=== PATIENT | male | born 1960 | race Caucasian/White ===

== ENCOUNTER 2016-08-22 18:46 | Observation (INO) ==
[2016-08-22 19:30] LABS: Basophils # 0.1 K/mcL (0.0-0.2); Basophils % 0.9 %; Eosinophils # 0.1 K/mcL (0.0-0.6); Hematocrit 46.3 % (37.5-50.1); Hemoglobin 15.9 g/dL (12.9-16.9); Immature Granulocytes % 0.2 % (0-4); Lymphocytes # 2.2 K/mcL (0.6-4.6); Lymphocytes % 40.2 %; Mean Corpuscular HGB Conc 34.3 g/dL (31.6-35.5); Mean Corpuscular Hemoglobin 29.5 pg (28.0-33.3); Mean Corpuscular Volume 85.9 fL (83.0-100.0); Monocytes # 0.5 K/mcL (0.0-1.3); Monocytes % 8.3 %; Neutrophils # 2.6 K/mcL (1.6-8.9); Platelet Count 219 K/mcL (140-400); Red Blood Count 5.39 M/mcL (4.19-5.50); Red Cell Distribution Width 12.3 % (11.5-14.5); Segmented Neutrophils % 48.4 %
[2016-08-22 19:34] LABS: Prothrombin Time 11.3 Seconds (9.4-12.1)
[2016-08-22 19:37] LABS: Activated Partial Thrombo Time 29.9 Seconds (26.0-36.0)
[2016-08-22 19:43] LABS: BUN/Creatinine Ratio 14 (6-26); Blood Urea Nitrogen 13 mg/dL (8-26); Calcium 9.4 mg/dL (8.6-10.8); Carbon Dioxide 22 mEq/L (19-29); Chloride 106 mEq/L (98-109); Glucose 97 mg/dL (70-99); Osmolality,Calculated 288 (280-300); Potassium 4.2 mEq/L (3.5-4.5); Sodium 139 mEq/L (136-145); eGFR For African Americans > 60 (> 60); eGFR For Non-African Americans > 60 (> 60)
[2016-08-22] MEDS ORDERED: Aspirin 81 MG TAB.CHEW PO ONE (20:03)
--- NOTE | 2016-08-22 20:07 | Emergency Department Note ---
Disposition Clinical Impression: NSTEMI (non-ST elevated myocardial infarction) Chest pain Qualifiers: Chest pain type: unspecified Qualified Code(s): R07.9 - Chest pain, unspecified Disposition: Admitted As Inpatient Condition: Fair Time of Disposition: 20:46 Chest Pain HPI - General Chief Complaint: ED Chest Pain Stated Complaint: chest pain Time Seen by Provider: 08/22/16 19:44 Source: patient, family Limitations: no limitations Vital Signs Reviewed: Yes Nursing Notes Reviewed: Yes - History of Present Illness HPI Narrative: Mr. Montes De Oca, 56-year-old male, presents from home by daily which she complained of chest pain. Onset today at approximately 1700 hrs. Described assubtenal tightness/heaviness. Nonradiating. Associated with nausea, dyspnea. No diaphoresis or weakness. Occurred while sitting, relaxed, watching television. Duration of approximate 5 minutes before spontaneously resolving. He did not take anything to try and relieve his symptoms. He is asymptomatic at this time. He notes that this occurred one time previously approximately 1-2 weeks ago while fishing. It was severe enough that he had to sit until his symptoms passed before he can resume fishing. PMH: Hyperlipidemia, borderline diabetic. No history of CAD or ACS. Family history: Father had stent placed at approximately 60 years of age. Habits: [id number] history of smoking (10 years 1.5 pack per day); quit in 1997. ROS: Positive: Chest pain, nausea, dyspnea Negative: Moira, chills, weakness, diaphoresis, abdominal pain Severity scale (1-10): 3 - Related Data Home Medications Medication Instructions Recorded Confirmed Atorvastatin [Lipitor] 10 mg PO HS 08/22/16 08/22/16 Tamsulosin [Flomax] 0.4 mg PO DAILY 08/22/16 08/22/16 Allergies Allergy/AdvReac Type Severity Reaction Status Date / Time clarithromycin [From Biaxin] Allergy Rash Verified 08/22/16 18:57 All systems ED: reviewed and negative except as stated. Chest Pain PMH - Past Medical History Medical history: Reports: hyperlipidemia - Social History Smoking Status: Never smoker Alcohol use: Reports: occasionally Drug use: Reports: none Physical Exam Vital Signs Reviewed General: Patient is alert, oriented, and in no acute distress. HEENT: No facial asymmetry. Head is normocephalic and atraumatic. Trachea midline. Cardiovascular: Heart regular rate and rhythm without clicks, rubs, gallops, or murmurs. No JVD. PMI nondisplaced. Bilateral radial posterior tibial pulses equal and 2/4. Respiratory: Symmetric chest rise with good respiratory effort. Bilateral breath sounds are clear without wheezing, crackles, or rhonchi. Abdomen: Obese. Bowel sounds present normoactive x-4 quadrants. Abdomen is soft, nondistended, and nontender. No organomegaly noted. Psych: Patient's affect is appropriate for situation. - General Limitations: no limitations General appearance: alert, in no apparent distress Course Course Narrative: Patient's history is concerning for ACS. He is now pain-free. We will provide aspirin and chest pain workup. Chest x-ray is unremarkable. EKG does not show ST elevations. Troponin elevated at 0.05 otherwise chemistries unremarkable; no kidney dysfunction. Spoke with the patient and his at bedside. Discussed the meaning of an EKG as well as troponin looking for gross muscle injury as well as cellular injury. Discussed his slight elevation in troponin and my concerns for possible evolving cardiac damage. They agree for admission to hospital for continued evaluation. Spoke with the admitting hospitalist, Dr. Esquivel, agrees to accept the patient. He requested we began ACS dose heparin. Spoke with patient regarding risks and benefits they agree to begin heparin. Vital Signs Temperature 98.0 F 08/22/16 18:52 Pulse Rate 77 08/22/16 18:52 Respiratory Rate 16 08/22/16 18:52 Blood Pressure 155/99 08/22/16 18:52 O2 Sat by Pulse Oximetry 95 08/22/16 18:52 Temperature 98.0 F 08/22/16 18:52 Pulse Rate 76 08/22/16 20:28 Respiratory Rate 0 08/22/16 21:42 Blood Pressure 0/0 08/22/16 21:42 O2 Sat by Pulse Oximetry 96 08/22/16 20:28 Oxygen Delivery Oxygen Delivery Room Air Chest Pain - Medical Records Medical records reviewed: Yes I reviewed the patient's medical records. - Lab Data Lab results reviewed: Yes I reviewed the patient's lab results. Result diagrams: 08/22/16 19:23 08/22/16 19:23 Lab Results 08/22/16 08/22/16 08/22/16 Range/Units 19:23 19:23 19:23 WBC 5.4 (4.3-11.1) K/mcL RBC 5.39 (4.19-5.50) M/mcL Hgb 15.9 (12.9-16.9) g/dL Hct 46.3 (37.5-50.1) % MCV 85.9 (83.0-100.0) fL MCH 29.5 (28.0-33.3) pg MCHC 34.3 (31.6-35.5) g/dL RDW 12.3 (11.5-14.5) % Plt Count 219 (140-400) K/mcL MPV 10.0 (9.4-12.4) fL Immature Gran % 0.2 (0-4) % Seg Neutrophils % 48.4 % Lymphocytes % 40.2 % Monocytes % 8.3 % Eosinophils % 2.0 % Basophils % 0.9 % Neutrophils # 2.6 (1.6-8.9) K/mcL Lymphocytes # 2.2 (0.6-4.6) K/mcL Monocytes # 0.5 (0.0-1.3) K/mcL Eosinophils # 0.1 (0.0-0.6) K/mcL Basophils # 0.1 (0.0-0.2) K/mcL PT 11.3 (9.4-12.1) Seconds INR 1.0 APTT 29.9 (26.0-36.0) Seconds Sodium 139 (136-145) mEq/L Potassium 4.2 (3.5-4.5) mEq/L Chloride 106 (98-109) mEq/L Carbon Dioxide 22 (19-29) mEq/L BUN 13 (8-26) mg/dL Creatinine 0.92 (0.72-1.25) mg/dL Est GFR ( Amer) > 60 (> 60) Est GFR (Non-Af Amer) > 60 (> 60) BUN/Creatinine Ratio 14 (6-26) Glucose 97 (70-99) mg/dL Calculated Osmolality 288 (280-300) Calcium 9.4 (8.6-10.8) mg/dL Troponin I (0-0.03) ng/mL 08/22/16 Range/Units 19:23 WBC (4.3-11.1) K/mcL RBC (4.19-5.50) M/mcL Hgb (12.9-16.9) g/dL Hct (37.5-50.1) % MCV (83.0-100.0) fL MCH (28.0-33.3) pg MCHC (31.6-35.5) g/dL RDW (11.5-14.5) % Plt Count (140-400) K/mcL MPV (9.4-12.4) fL Immature Gran % (0-4) % Seg Neutrophils % % Lymphocytes % % Monocytes % % Eosinophils % % Basophils % % Neutrophils # (1.6-8.9) K/mcL Lymphocytes # (0.6-4.6) K/mcL Monocytes # (0.0-1.3) K/mcL Eosinophils # (0.0-0.6) K/mcL Basophils # (0.0-0.2) K/mcL PT (9.4-12.1) Seconds INR APTT (26.0-36.0) Seconds Sodium (136-145) mEq/L Potassium (3.5-4.5) mEq/L Chloride (98-109) mEq/L Carbon Dioxide (19-29) mEq/L BUN (8-26) mg/dL Creatinine (0.72-1.25) mg/dL Est GFR ( Amer) (> 60) Est GFR (Non-Af Amer) (> 60) BUN/Creatinine Ratio (6-26) Glucose (70-99) mg/dL Calculated Osmolality (280-300) Calcium (8.6-10.8) mg/dL Troponin I 0.05 H* (0-0.03) ng/mL - Radiology Data Radiology results reviewed: Yes I reviewed the patient's radiology results. Chest X-Ray 08/22/16 19:03 IMPRESSION: Negative single view chest. D/ / Mazin Chinchilla MD / Mazin Chinchilla MD Interpreting Provider: Mazin Chinchilla MD - EKG Data EKG attestation: Yes I reviewed and interpreted this EKG. EKG results narrative: EKG dated 08/22/16 at 19:02 interpreted as sinus rhythm with rate of 81. Normal intervals with IN 149, QRS 101, QT/QTC 351/3-9. Left axis. T-wave inversion in 3 with flattened T waves in aVF and V1. Compared to previous EKG dated 07/11 showing normal axis with same T-wave characteristics; no acute ischemic changes comparison. Heart Score - Score History: Moderately Suspicious EKG: Non Specific repolarisation Disturbance Age: 45-65 Risk Factors: 1-2 risk factors Troponin: 1-3x normal limit HEART Score Total: 5 Critical Care Time Critical Care Time: Yes Total Critical Care Time: 35 Attestation: Critical care performed: Time is exclusive of separately billable procedures. Time includes: direct patient care, patient reassessment, coordination of patient care, interpretation of data (laboratory data, radiology data, and respiratory data), review of patient's medical records, medical consultation and documentation of patient care. Procedures included in critical care time: Procedures excluded from critical care time: Attestation Statement - Attestation Attestation: I, Baljinder Hoffman MD, personally evaluated this patient and discussed their management with the resident physician. I reviewed the resident's note and agree with the documented findings, medical decision making, and plan of care. 56-year-old male presents to the emergency department with a complaint of some mid substernal chest tightness which started about one hour prior to arrival. The tightness lasted about 5-10 minutes and resolved spontaneously. He denies any chest tightness at present. He also complains of some pain in the left anterior neck off-and-on all day today. He had a similar episode of chest tightness about 2 weeks ago. The episode today was not associated with any exertion. There was some mild nausea with the episode. No diaphoresis. No shortness of breath and no palpitations. No known prior history of urinary artery disease. He does have a history of hyperlipidemia and prediabetes. Denies hypertension. On examination patient is a well-developed well-nourished well-appearing male in no acute distress. He is alert and oriented 3. There is no cyanosis or diaphoresis. Chest is nontender to palpation. Breath sounds are clear and equal bilaterally. Heart regular rate and rhythm. Abdomen soft and nontender with normal bowel sounds. No pedal edema. No acute changes on EKG. Chest x-ray negative. Labs reviewed and unremarkable other than troponin of 0.05. Patient received aspirin and was placed on heparin infusion. The hospitalist, Dr. Lan, was consulted and accepted admission of the patient.
[2016-08-22] MEDS ORDERED: *HR* Heparin 5,000 UNIT/ML VIAL IVP ONE (20:36)
[2016-08-22] MEDS ORDERED: *HR* Heparin 5,000 UNIT/ML VIAL IVP PRN ×2 (20:36)
[2016-08-22] MEDS ORDERED: Heparin 25,000 UNIT/500 ML D5W 25,000 UNIT/500 ML MLS IVC SCH (20:45)
[2016-08-22] MEDS ORDERED: Naloxone 0.4 MG/ML INJ IVP PRN (22:26)
--- NOTE | 2016-08-22 23:57 | Internal Med History&Physical ---
<Vipul Jordan - Last Filed: 08/22/16 23:53> Date of Encounter: 08/22/16 Time of Encounter: 23:53 Assessment and Plan (1) NSTEMI (non-ST elevated myocardial infarction) Current visit: Yes Status: Acute Patient presents with chest pain that is resolved at this time. EKG showed some nonspecific ST changes, no ST elevation. Initial troponin was 0.05. Patient has been started on heparin drip. Will trend troponins, check lipid panel and A1c in the morning. We will place an order for a stress test, if the patient's troponin continues to rise he may be a candidate to forego the stress test and go straight to heart cath. If patient's troponin continues to rise we will consult cardiology and evaluated for possible heart cath. Patient received aspirin in the emergency department, will continue daily aspirin and statin. (2) Hyperlipidemia Current visit: Yes Status: Acute Continue statin. Check lipid panel morning. Qualifiers: Hyperlipidemia type: unspecified Qualified Code(s): E78.5 - Hyperlipidemia , unspecified (3) DVT prophylaxis Current visit: Yes Status: Acute Patient is currently on a heparin drip for an NSTEMI. Internal Medicine - H&P: HPI Chief complaint: Chest pain Admitted From: Emergency Dept Plans for Post Hospital Care: Home History of present illness: Mr. Montes De Oca is a 56 year old male with history of hyperlipidemia who presents with chest pain. He states this pain started around 5:00 today while he was sitting watching TV. He describes this as a tightness in his chest. He states he had similar symptoms approximately 2 weeks ago while fishing. He states he sat down at that time the pain resolved after 5 minutes. Patient states that his pain lasted 15-20 minutes with this episode. Patient is chest pain-free at the time of exam. Patient states that the pain radiated into the left side of his neck. He reports associated nausea but denies vomiting, shortness of breath , diaphoresis. He reports being a former smoker quitting in 1998 and smoking 1- 1/2 packs per day for approximately 20 years prior to quitting. He reports family history with his father and grandfather receiving stents in the 60s. Denies fever, chills, cough, lower extremity swelling. Past Med Surg Social Fam HX - Past Medical History Medical history: arthritis, hyperlipidemia Psychiatric history: no psych history - Past Surgical History Surgical History: other (trigger finger) - Social History Smoking Status: Former smoker Smokeless Tobacco Status: No Alcohol use: occasionally Drug use: none - Family History Father Living Status: Cause of : [place] Hx Family Cardiac Disorders: Yes ([place] WITH STENTS) Hx Family Cancer: Yes (LUNG WITH METS) Internal Medicine - H&P: Meds Atorvastatin [Lipitor] 10 mg PO HS 08/22/16 [History] Tamsulosin [Flomax] 0.4 mg PO DAILY 08/22/16 [History] Allergies clarithromycin [From Biaxin] Allergy (Verified 08/22/16 18:57) Rash All Systems PM: A 10-system review of systems was performed and is negative for pertinent findings except as documented above in the HPI. - Constitutional Constitutional: no chills, no fever(s) - EENT Eyes: no blurry vision, no change in vision Nose, mouth and throat: no sinus pain, no sinus pressure, no sore throat - Cardiovascular Cardiovascular ROS IM: chest pain, no dyspnea, no edema, no lightheadedness, no palpitations, no syncope - Respiratory Respiratory: no cough, no dyspnea, no chest congestion, no excessive phlegm production, no change in phlegm color - Gastrointestinal Gastrointestinal: nausea, no abdominal pain, no diarrhea, no vomiting - Genitourinary Genitourinary ROS male: no dysuria, no hematuria - Musculoskeletal Musculoskeletal ROS IM: no numbness, no tingling - Integumentary Integumentary IM: no new lesions, no rash - Neurological Neurological ROS: no focal weakness, no numbness, no tingling - Psychiatric Psychiatric: no anxiety, no confusion - Endocrine Endocrine IM: no polydipsia, no polyuria - Hematologic/Lymphatic Hematologic/Lymphatic: no easy bleeding, no easy bruising - Constitutional Vitals: Temp Pulse Resp BP Pulse Ox 98.1 F 78 20 175/85 95 08/22/16 22:11 08/22/16 22:11 08/22/16 22:11 08/22/16 22:11 08/22/16 22:11 General appearance: Present: A&O X 3, pleasant, no acute distress - Head Head exam: Present: atraumatic, normal inspection, normocephalic - Eye Eye exam: Present: EOMI, PERRL - ENT ENT exam: Present: mucous membranes moist - Neck Neck exam general surgery: Present: full ROM, supple - Respiratory Respiratory exam: Present: CTAB. Absent: rales, rhonchi, wheezes - Cardiovascular Cardiovascular exam: Present: RRR. Absent: gallop, rubs, systolic murmur - GI/Abdominal GI/Abdominal exam: Present: normal bowel sounds, soft. Absent: distended, tenderness - Extremities Exam Extremities exam: Present: warm. Absent: pedal edema, tenderness - Neurological Exam Neurological exam: Present: alert, CN II-XII intact, oriented X3, no focal deficits - Psychiatric Psychiatric exam: Present: normal affect, normal mood Internal Med - H&P Results - Labs CBC & Chem 7: 08/22/16 19:23 08/22/16 19:23 <Mazin Lan - Last Filed: 08/23/16 01:28> Date of Encounter: 08/22/16 Internal Medicine - H&P: HPI History of present illness: Mr. Montes De Oca is a 56 year old male All Systems PM: A 10-system review of systems was performed and is negative for pertinent findings except as documented above in the HPI. - Constitutional Vitals: Temp Pulse Resp BP Pulse Ox 98.1 F 78 20 175/85 95 08/22/16 22:11 08/22/16 22:11 08/22/16 22:11 08/22/16 22:11 08/22/16 22:11 Internal Med - H&P Results - Labs CBC & Chem 7: 08/22/16 19:23 08/22/16 19:23 - Attending Attestation I personally interviewed and examined this patient and my medical decision- making was reviewed with the Resident Physician. I agree with the documented findings, disposition and treatment plan as described.
[2016-08-23 03:55] LABS: Hematocrit 46.5 % (37.5-50.1); Hemoglobin 15.8 g/dL (12.9-16.9); Mean Corpuscular Hemoglobin 29.5 pg (28.0-33.3); Mean Corpuscular Volume 86.9 fL (83.0-100.0); Mean Platelet Volume 10.4 fL (9.4-12.4); Platelet Count 203 K/mcL (140-400); Red Blood Count 5.35 M/mcL (4.19-5.50); Red Cell Distribution Width 12.4 % (11.5-14.5)
[2016-08-23 04:00] LABS: Hemoglobin A1C 5.8 %
[2016-08-23 04:05] LABS: BUN/Creatinine Ratio 14 (6-26); Blood Urea Nitrogen 13 mg/dL (8-26); Calcium 9.5 mg/dL (8.6-10.8); Carbon Dioxide 22 mEq/L (19-29); Chloride 108 mEq/L (98-109); Cholesterol 176 mg/dL (< 200); Glucose 116 mg/dL (70-99); HDL Cholesterol 35 mg/dL (40-59); LDL Cholesterol,Calculated 104 mg/dL (0-99); Magnesium 2.1 mg/dL (1.6-2.6); Osmolality,Calculated 291 (280-300); Phosphorous 4.4 mg/dL (2.3-4.7); Potassium 4.3 mEq/L (3.5-4.5); Sodium 140 mEq/L (136-145); Triglycerides 184 mg/dL (< 150); eGFR For African Americans > 60 (> 60); eGFR For Non-African Americans > 60 (> 60)
[2016-08-23] MEDS ORDERED: Regadenoson 0.4 MG/5 ML SYRINGE IVP ONE (06:00)
[2016-08-23] MEDS: Aspirin 81 MG TAB.CHEW PO SCH (10:27)
--- NOTE | 2016-08-23 10:30 | Nuclear Medicine Stress Report ---
Regadenoson Nuclear Stress Name: Izaiah Montes De Oca Date of Study: 08/23/2016 Date: 1960 Ht: 72.0 in Medical Record#: [id number] Age: 56 Wt: 259.0 lb Gender: Male Order #: [id number] Location: [facility] Room: [facility] Supervising Provider: Chadwick Shea CNP Reading Physician: Paulo Marie DO, FACC, FASVT Ordering Physician: Jessica Chandler CNP Primary Care Physician: None Stress Technologist: Isabel Bernal, ADDY, CPFT Supervisor Files: Hugo Willson Indications: Chest Pain Impression: Pharmacologic stress ECG is non diagnostic for ischemia due to failure to reach target heartrate. Gated EF = 56%. Medium sized, moderate to severe intensity, partially reversible inferior perfusion defect. Findings suggestive of a small prior basal inferior infarction with significant residual ischemia involving the remainder of the inferior segments. SDS 5. Jessica Chandler CNP notified via Tirendo. History: Hypercholesteremia Stress Test Summary: Stress Test Type: Pharmacologic Dobutamine Baseline Information: Initial Heart Rate: 78 Blood Pressure: 130/68 Stress Information: Test Terminated Due to (primary): As per protocol Maximum Blood Pressure: 136/64 Maximum Heart Rate: 99 Percent Maximum Heart Rate Achieved: 61 Double Product: 34521 METS Reached: 1 Symptoms: No chest symptoms Nuclear Summary: SPECT myocardial perfusion imaging using Tc99m Sestamibi given intravenously was performed at rest and following cardiac stress testing. The resting images were obtained following initial dose of 10.7 mCi. Following stress an additional dose of 35.4 mCi was given at peak exercise or 30 seconds post regadenoson infusion. Medication Given: Time Medication Dose Units Route Findings: Stress Note * Resting ECG demonstrated normal sinus rhythm. * No baseline arrhythmias were noted. * Pharmacologic stress ECG is non diagnostic for ischemia due to failure to reach target heartrate. * No chest pain or arrhythmias during stress. Hemodynamic responses * Normal hemodynamic responses to pharmacologic stress. Study Quality * Study quality is average. Gated EF % * Gated EF = 56%. Left Ventricle * The left ventricle is not dilated. * LVEDV = 106 mL. Inferior Perfusion Rest * The basal inferior segment shows a moderate reduction in perfusion. Inferior Perfusion Stress * The inferior segments show a moderate to severe reduction in perfusion. TID * No evidence of transient ischemic dilatation. TID ratio * TID ratio = 0.86. Lung Uptake * There is no evidence of increase lung uptake. Updated by Paulo Marie DO, ISIDRO, SHAZIA, LIANNE on 08/23/2016 10:23:15 AM electronically signed on 08/23/2016 10:25:52 AM with status of Final
--- NOTE | 2016-08-23 11:56 | Cardiology Consult Note ---
Date of Encounter: 08/23/16 Time of Encounter: 11:50 Assessment and Plan (1) Chest pain Current Visit: Yes Status: Acute Per Cardiology: Currently chest pain-free. Qualifiers: Chest pain type: precordial pain Qualified Code(s): R07.2 - Precordial pain (2) NSTEMI (non-ST elevated myocardial infarction) Current Visit: Yes Status: Acute Per Cardiology: Troponins elevated at 0.05, 0.06, and 0.05. Non-STEMI versus demand ischemia. Systolic blood pressures were noted to be slightly elevated at 150s to 170s during hospital stay. Currently on IV heparin drip per primary service. On aspirin, statin, beta duran. Stress test results showed the size, moderate to severe intensity, partially reversible inferior perfusion defect suggestive of small prior basal inferior infarction with significant residual ischemia involving the remainder of the inferior segments. I had a lengthy discussion with patient and family regarding further ischemic evaluation in terms of left heart catheterization. Risk factors include: hx of nicotine abuse, +FH, HLD, obesity, "pre-DM2", male. At this point they are agreeable to proceed. Discussed and reviewed with Dr. Jiang and Dr. Cristine Oro. We'll check echo. Further recommendations after catheterization and echo. All questions answered. (3) Abnormal stress test Current Visit: Yes Status: Acute Per cardiology: Abnormal nonexercise nuclear stress test. Discussion w patient/family: The assessment and plan as outlined above was discussed with the patient and/or family members who expressed understanding and agreement. All questions were answered. Thank you for involving us in the care of your patient. Please call with any questions. History of Present Illness Consult date: 08/23/16 Requesting physician: William Bro Consult reason: + Stress test Chief complaint: CP History of present illness: Mr. Montes De Oca is a 56 year old male with past medical history of hyperlipidemia, reports "prediabetic", and past nicotine abuse of smoking 1-1/2 packs per day for 20 years-- last smoked 1998. Has +FH with dad with [place]/stents in his 60s. Cardiology consult for chest pain and abnormal stress test results. Patient seen today with his and daughter at bedside. He indicates increased fatigue over the past 6 months. Reports mild increased dyspnea on exertion and this time as well. He does work at [employer] and reports job is fairly exertional. He indicates he developed midsternal chest tightness/ heaviness about one month ago fishing. At that time he sat down and symptoms did resolve on their own accord after about 5 minutes. He denied any other accompanying symptoms. He reports yesterday evening came home from work sitting down and watch television symptoms returned with similar midsternal chest tightness and squeezing pain with left neck pain and discomfort. It also lasted about 5 minutes and eventually subsided. Reports had some mild nausea as well. Past Med Surg Social Fam HX - Past Medical History Attestation: Yes The following information was validated with the patient. Source: patient, old records reviewed, obtained from family Medical history: arthritis, hyperlipidemia Psychiatric history: no psych history - Past Surgical History Surgical History: other (trigger finger) - Social History Smoking Status: Former smoker Smokeless Tobacco Status: No Alcohol use: occasionally Drug use: none - Family History Father Living Status: Cause of : [place] Hx Family Cardiac Disorders: Yes ([place] WITH STENTS) Hx Family Cancer: Yes (LUNG WITH METS) Medications and Allergies Atorvastatin [Lipitor] 10 mg PO HS 08/22/16 [History] Tamsulosin [Flomax] 0.4 mg PO DAILY 08/22/16 [History] Allergies clarithromycin [From Biaxin] Allergy (Verified 08/22/16 18:57) Rash All Systems Review: A 10-system review of systems was performed and is negative for pertinent findings except as documented above in the HPI. - Constitutional Constitutional: fatigue - Cardiovascular Cardiovascular: as per HPI, chest pain at rest, dyspnea on exertion Physical Examination Selected Entries 08/23/16 10:30 08/23/16 12:50 Temperature 98.1 F Pulse Rate 103 Respiratory Rate 18 Blood Pressure 146/80 O2 Sat by Pulse Oximetry 95 Oxygen Delivery Method Room Air General: Conversant, No Apparent Distress HEENT: Atraumatic, Normocephaly, Mucus Membranes Moist Neck: No JVD, Normal carotid pulses Cardiac: Reg Rate and Rhythm, Normal S1 and S2, No Murmur Lungs: Normal Breath Sounds, No Wheeze, Rales, Rhonchi Neuro: Alert and responsive, No focal deficits noted Abdomen: Soft, Non-Tender Skin: No rashes noted on visualized skin Musculoskeletal: No Chest Wall Tenderness Extremities: No Clubbing, No Cyanosis, No Edema, Normal Pulses Results 08/23/16 03:30 08/23/16 03:30 Lab Results Laboratory Tests 08/22/16 08/22/16 08/23/16 19:23 19:23 03:30 INR 1.0 Creatinine Est GFR (Non-Af Amer) Hemoglobin A1c Troponin I 0.05 H* 0.06 H* LDL Cholesterol, Calc 08/23/16 08/23/16 08/23/16 03:30 03:30 11:39 INR Creatinine 0.92 Est GFR (Non-Af Amer) > 60 Hemoglobin A1c 5.8 H Troponin I 0.05 H* LDL Cholesterol, Calc 104 H ITS Impressions Chest X-Ray 08/22/16 19:03 IMPRESSION: Negative single view chest. D/ / Mazin Chinchilla MD / Mazin Chinchilla MD Interpreting Provider: Mazin Chinchilla MD Active Medications Aspirin (Aspirin) 81 mg PO DAILY KIERAN Stop: 02/22/17 09:01 Last Admin: 08/23/16 10:27 Dose: 81 mg Atorvastatin Calcium (Lipitor) 80 mg PO HS KIERAN Stop: 02/22/17 21:01 Carvedilol (Coreg) 3.125 mg PO BIDWM KIERAN PRN Reason: Protocol Stop: 02/22/17 17:01 Naloxone HCl (Narcan) 0.4 mg IVP Q2MIN PRN PRN Reason: Opioid Reversal Stop: 02/21/17 22:27 Nitroglycerin (Nitroglycerin) 0.4 mg SL Q5MIN PRN PRN Reason: Chest Pain Stop: 02/22/17 12:22 Tamsulosin HCl (Flomax) 0.4 mg PO HS KIERAN PRN Reason: Protocol Stop: 02/21/17 21:01 Last Admin: 08/22/16 22:36 Dose: Not Given - Imaging and Cardiology Chest Xray: report reviewed Stress Test: report reviewed - EKG Interpretation EKG results cardiology: personally reviewed, normal ECG, sinus rhythm, no diagnostic ischemia Consult Discharge Plan - Plan Referrals: Izaiah Marrufo MD [Primary Care Provider] -
--- NOTE | 2016-08-23 12:18 | Internal Med Progress Note ---
Date of Encounter: 08/23/16 Time of Encounter: 11:15 - Assessment and plan (1) Abnormal stress test Current Visit: Yes Status: Acute Assessment and plan: Patient underwent nuclear stress test which showed inferior ischemia. Has good ejection fraction. Cardiology has been consulted. Troponin stable at 0.05. Still having intermittent chest pain. Patient will likely need left heart catheterization. High risk for complications (2) Chest pain Current Visit: Yes Status: Acute Assessment and plan: Likely angina related to his pain. Abnormal stress test. Await cardiology input. Qualifiers: Chest pain type: precordial pain Qualified Code(s): R07.2 - Precordial pain (3) Hyperlipidemia Current Visit: Yes Status: Chronic Assessment and plan: Continue Lipitor Qualifiers: Hyperlipidemia type: mixed hyperlipidemia Qualified Code(s): E78.2 - Mixed hyperlipidemia (4) Essential hypertension Current Visit: Yes Status: Chronic Assessment and plan: Blood pressure elevated today. Not on any medications at home. We will start on low-dose beta duran - Subjective Interval history: Patient feeling better today. Having occasional intermittent chest pain. No shortness of breath. Underwent cardiac stress test earlier today. Tolerated procedure well. - Constitutional Vitals: Temp Pulse Resp BP Pulse Ox 98.1 F 69 20 165/88 95 08/23/16 07:07 08/23/16 07:07 08/23/16 07:07 08/23/16 07:07 08/23/16 07:07 General appearance: Present: A&O X 3, pleasant, no acute distress - Respiratory Respiratory exam: Present: CTAB. Absent: accessory muscle use, rales, rhonchi, wheezes - Cardiovascular Cardiovascular exam: Present: RRR, +S1, +S2. Absent: diastolic murmur, gallop, rubs, systolic murmur - GI/Abdominal GI/Abdominal exam: Present: normal bowel sounds, soft, no peritoneal signs. Absent: distended, tenderness - Neurological Exam Neurological exam: Present: alert, oriented X3, no focal deficits. Absent: facial droop, speech deficit Internal Medicine: Result - Labs CBC & Chem 7: 08/23/16 03:30 08/23/16 03:30 Labs: Short CBC 08/23/16 Range/Units 03:30 WBC 4.6 (4.3-11.1) K/mcL Hgb 15.8 (12.9-16.9) g/dL Hct 46.5 (37.5-50.1) % Plt Count 203 (140-400) K/mcL BMP 08/23/16 03:30 Sodium 140 Potassium 4.3 Chloride 108 Carbon Dioxide 22 BUN 13 Creatinine 0.92 Glucose 116 H Calcium 9.5 Cardiac Enzymes 08/23/16 08/23/16 Range/Units 03:30 11:39 Troponin I 0.06 H* 0.05 H* (0-0.03) ng/mL - ABG Interpretation ABG results: PT/INR, D-dimer PT 11.3 Seconds (9.4-12.1) 08/22/16 19:23 Consult Discharge Plan - Plan Referrals: Izaiah Marrufo MD [Primary Care Provider] - - Attending Attestation This document has been at least partially created by [employer] recognition technology by Dr. Bro. Errors in grammar, wording or other phrases may exist. If errors are found after the documentation is signed, they will be addressed individually in the addendum section of this document when appropriate.
[2016-08-23] MEDS ORDERED: Nitroglycerin 0.4 MG TAB.SUBL SL PRN (12:21)
[2016-08-23] MEDS ORDERED: Nitroglycerin 1,000 MCG/10 ML VIAL IV ONE (13:17)
[2016-08-23] MEDS ORDERED: *HR* Heparin 10,000 UNIT/10 ML VIAL ONE (13:17)
[2016-08-23] MEDS ORDERED: 0.9 % Sodium Chloride 1,000 ML ONE ×2 (13:17→13:54)
[2016-08-23] MEDS ORDERED: Heparin 1,000 UNITS/500 mL NS 500 ML ONE (13:17)
[2016-08-23] MEDS ORDERED: *HR* Midazolam HCl 2 MG/2 ML VIAL ONE (13:58)
[2016-08-23] MEDS ORDERED: *HR* FentaNYL (PF) 100 MCG/2 ML VIAL ONE (13:59)
--- NOTE | 2016-08-23 14:18 | Pre-Sedation Evaluation ---
Pre-sedation evaluation - Pre-sedation checklist Date of procedure: 08/23/16 Procedure: [facility] Recent Vitals: Last Vital Signs Temp 98.1 F 08/23/16 12:50 Pulse 103 08/23/16 12:50 Resp 18 08/23/16 12:50 BP 146/80 08/23/16 12:50 Pulse Ox 95 08/23/16 12:50 H&P (including ROS) documented in medical record: Yes Previous reaction to sedatives/anesthetics: No Dietary Status: No solid food in preceding 4 hrs and no liquid in preceding 2 hrs Airway Assessment: Patient can open mouth completely, TMJ function normal, Micrognathia (under-bite, receding chin) absent, Neck with adequate range of motion Dentition: full dentition Possible difficult airway: No ASA Classification *see protocol: CLASS II-Mild systemic disease Plan of Care: Pt appropriate candidate for procedure/moderate/conscious sedation , Risks/benefits of procedure/sedation discussed w/ patient/family
[2016-08-23] MEDS ORDERED: *HR* Ticagrelor 90 MG TABLET ONE (14:54)
[2016-08-23] MEDS ORDERED: 0.9 % Sodium Chloride 1,000 ML IVC SCH (15:30)
--- NOTE | 2016-08-23 15:42 | Invasive Diagnostic Lab ---
Name: Izaiah Montes De Oca Date of Study: 08/23/2016 Date: 1960 Ht: 183.0 cm /72.0 in Medical Record#: [id number] Age: 56 Wt: 118. kg / 260.15 lb Account/Order#: [id number] Gender: Male BSA: 2.38 Order #: [id number] Fluoro Dose: 978 mGy BMI: 35.24 Procedure Physician: Robyn Oro MD, [facility] Referring MD: Referring MD: Procedures Performed: LEFT HEART CATH Stent w/ PTCA Single Major Vessel Indications: Abnormal Test - Stress, Non-Stemi Impressions: There is severe one vessel coronary artery disease. The left ventricle is normal and has normal contractility EF 55% Patient had successful PTCA/Drug-Eluting Stent placement in the distal RCA. Recommendations: Plavix (Clopidogrel) 75 mg PO Daily. Optimal medical therapy of patient's disease. Aggressive risk factor modification. Patient being referred for cardiac rehab. History/Risk Factors: arthritis former smoker Hypertension Dyslipidemia Family History of CAD Procedure Access obtained in the right Femoral artery by percutaneous puncture Patient had successful PTCA/Drug-Eluting Stent placement in the distal RCA. Complications: None Contrast: Isovue 115ml Closure Device: Manual Compression Hemodynamics: Pressures Site Systolic/ A Wave Diastolic/ V Wave End Diastolic/ Mean HR AO 116 89 102 71 AO 135 107 121 74 LV 109 36 11 86 LV 109 10 10 73 LV 118 2 48 71 AO 105 80 94 76 AO 114 77 94 74 AO 121 89 106 71 LV Ventriculography Ejection Method: LV Gram Ejection Fraction: 55% Wall Motion: LONG Anterobasal Normal Anterolateral Normal Apical: Normal Inferoapical Mild Hypokinesis Inferobasal Mild Hypokinesis Coronary Dominance: right Lesion Findings/Interventions * Left Main Coronary Artery There is a 25% stenosis in the LMCA. * Left Anterior Descending There is a 30% stenosis in the Proximal LAD. There is a 30% stenosis in the Mid LAD. There is a 40% stenosis in the 1st Diagonal. * Circumflex There is a 30% stenosis in the Proximal Circumflex. There is a 30% stenosis in the Mid Circumflex. There is a 40% stenosis in the Distal Circumflex. * Right Coronary Artery There is a 30% stenosis in the Proximal RCA. There is a 30% stenosis in the Mid RCA. There is a 16 mm long, 99% stenosis in the Distal RCA. The lesion has a ANDRAE flow of 2 and has no thrombus present. An intervention was performed on the Distal RCA with a final stenosis of 0%. There were no lesion complications. The final ANDRAE flow was 3. AV segment fills via L to R collaterals. Interventional Device(s) Vessel Segment Type Name Diameter (mm) Length (mm) Distal RCA Balloon Emerge Monorail 2 12 Distal RCA Drug Eluting Stent Synergy 2.5 16 Updated by Robyn Oro MD, FACC on 08/23/2016 3:36:22 PM Robyn Oro MD, FACC electronically signed on 08/23/2016 3:37:49 PM with status of Final
--- NOTE | 2016-08-23 16:37 | Electrocardiograph Report ---
[address] [address] Test Date: 2016-08-22 Pat Name: Izaiah Montes De Oca Department: 103 Room: [facility] Gender: M Security Trainer: [facility] : 1960 Requested By: Que Ta Order Number: [id number] Reading MD: Robyn Oro Measurements Intervals [place] Rate: 81 P: 28 GA: 149 QRS: -25 QRSD: 101 T: 7 QT: 351 QTc: 389 Interpretive Statements SINUS RHYTHM BORDERLINE LEFT AXIS DEVIATION LOW QRS VOLTAGE IN PRECORDIAL LEADS INCOMPLETE RIGHT BUNDLE BRANCH BLOCK Electronically Signed On 08-23-2016 16:36:02 EDT by Robyn Oro
--- NOTE | 2016-08-23 17:57 | Invasive Diagnostic Lab Proc ---
Name: Izaiah Montes De Oca Date of Study: 08/23/2016 Date: 1960 Ht: 72.0in Medical Record#: [id number] Age: 56 Wt: 260.15lb Gender: Male BSA: 2.38 Order #: [id number] BMI: 35.24 Physicians Procedure Physician: Robyn Oro MD, FACC Referring MD: Referring MD: Staff Name Position Time In Elidia Hughes RN Monitor 02:14 PM Maira Coronado RN Tourist Home Keeper 02:14 PM Estrellita Donald RT (R) Scrub 02:14 PM Indications Indication Abnormal Test - Stress Non-Stemi Procedures Performed Procedure L HRT ARTERY/VENTRICLE ANGIO PRQ CARD YAMILA STENT W/ANGIO 1 VSL Pre-Procedure Checklist Informed consent is complete signed and on chart. H\\T\\P is on chart. ID band is on and ID verified with patient. Patient NPO for procedure The procedure was described for the patient and questions were answered. Blood Pressure: 146/80 ECG is on chart. Plan of Care Patient will tolerate the procedure without complications. Adequate level of comfort will be maintained. Hemodynamics will remain stable Patient will recover from procedure without complications. Respiratory function will be maintained. Cardiac rhythm will remain stable. Patient temperature will be maintained. Patient and/or family have verbalized understanding of the procedure. Patient Education Chief Complaint/Reason for Test: Cardiac Cath Developmental Category: Adult (18-64 years) Developmentally Appropriate for Age: Yes Learning Barriers: None Education Needs: Procedure Education Method: Verbal Information Taught: Cardiac Cath Educational Evaluation: Able to repeat information Intravenous Access Time IV Size Location DC'd Fluid/Drip Rate Units RN 01:19 PM 20g 1 1/4" Patent On Arrival Lt Antecubital 0.9NaCl 50 ml/hr Maira Coronado RN Allergies clarithromycin Vital Signs Time BP (mmHg) HR (bpm) O2 Sat. RR (bpm) LOC 01:20 PM 146 / 80 103 95 % 18 5 = Fully awake and oriented or at pre-proc level 02:20 PM / % 5 = Fully awake and oriented or at pre-proc level 02:20 PM / % 4 = Oriented but drowsy 02:46 PM 140 / 97 70 94 % 15 02:51 PM 142 / 94 69 95 % 14 02:16 PM 167 / 96 % 02:21 PM 162 / 105 77 94 % 27 02:26 PM 139 / 96 74 92 % 5 02:31 PM 147 / 97 93 97 % 5 02:36 PM 147 / 100 71 96 % 12 02:41 PM 141 / 90 75 95 % 15 03:12 PM 134 / 88 73 94 % 16 4 = Oriented but drowsy 03:35 PM 130 / 97 68 95 % 16 5 = Fully awake and oriented or at pre-proc level 03:45 PM 129 / 96 71 94 % 16 5 = Fully awake and oriented or at pre-proc level 04:00 PM 136 / 93 70 94 % 16 5 = Fully awake and oriented or at pre-proc level 04:15 PM 128 / 91 71 96 % 18 4 = Oriented but drowsy 04:33 PM 134 / 89 60 95 % 16 4 = Oriented but drowsy 04:45 PM 109 / 72 60 96 % 18 5 = Fully awake and oriented or at pre-proc level 05:00 PM 132 / 92 71 95 % 18 5 = Fully awake and oriented or at pre-proc level 05:15 PM 129 / 89 58 95 % 18 5 = Fully awake and oriented or at pre-proc level 05:30 PM 142 / 95 69 95 % 18 5 = Fully awake and oriented or at pre-proc level 05:40 PM 142 / 90 67 95 % 18 5 = Fully awake and oriented or at pre-proc level 05:50 PM 142 / 96 69 95 % 16 5 = Fully awake and oriented or at pre-proc level Procedural Medications Time Medication Dose Units Method Given By 02:19 PM Oxygen 2 L/min nasal cannula Maira Coronado RN 02:19 PM Versed 2 mg Intravenous Maira Coronado RN 02:19 PM Fentanyl 50 mcg Intravenous Maira Coronado RN 02:23 PM Oxygen 4 L/min nasal cannula Maira Coronado RN 02:30 PM Lidocaine 2% 18 ml Subcutaneous Robyn Oro MD, FACC 02:41 PM Angiomax 0.75mg/kg bolus: 18 ml Intravenous Maira Coronado RN 02:41 PM Angiomax 1.75mg/kg/hr: 42 ml Intravenous Maira Coronado RN 02:51 PM Nitroglycerin 200 mcg Intracoronary Robyn Oro MD, FACC 02:29 PM Benadryl 25 mg Intravenous Maira Coronado RN 02:55 PM Brilinta 180 mg Orally Maira Coronado RN ASA Classification: CLASS II- Mild systemic disease (i.e. well-controlled diabetes, hypertension, asthma, cigarette smoking) Feng Score Preprocedure Postprocedure Activity 2- Moves 4 extremities sustained head lift Activity 2- Moves 4 extremities sustained head lift Circulation 2- SBP +/= 20 points of pre-anesthetic level Circulation 2- SBP +/= 20 points of pre-anesthetic level Consciousness 2- Awake and alert oriented x 3 Consciousness 2- Awake and alert oriented x 3 O2 Saturation 2- Able to maintain O2 satruation of 92% on room air O2 Saturation 2- Able to maintain O2 satruation of 92% on room air Respiratory 2- Able to deep breathe and cough well Respiratory 2- Able to deep breathe and cough well Total Score 10 Total Score 10 Contrast Agent: Isovue Diagnostic Contrast: 115 ml Total Contrast: 115 ml Fluoro Dose: 978 mGy Procedure Log Time Note Enter By 02:13 PM CathStat 02:13 PM Case Start 02:14 PM Pt arrived to supervisor cytogenetic laboratory 2 at 14:14 [email or web address] 02:14 PM Elidia Hughes RN Position: Monitor Time in: 14:14 [email or web address] 02:14 PM Maira Coronado RN Position: Tourist Home Keeper Time in: 14:14 [email or web address] 02:14 PM Estrellita Donald RT (R) Position: Scrub Time in: 14:14 [email or web address] 02:14 PM Patient charges- Angio tray pack, Navilyst 3mm J, Pulse Oximetry and ACIST tubing and transducer [email or web address] 02:14 PM Case Delayed No [email or web address] 02:14 PM Hair removed from procedure site in procedure lab using clippers. Bilateral groin prepped with Chloraprep by Elidia Hughes RN, safety strap applied then patient was draped. Skin intact. [email or web address] 02:14 PM Physician arrived 14:14 [email or web address] 02:14 PM ASA Class CLASS II- Mild systemic disease (i.e. well-controlled diabetes, hypertension, asthma, cigarette smoking) [email or web address] 02:14 PM Meet and greet completed [email or web address] 02:14 PM Sign in performed according to hospital policy. [email or web address] 02:14 PM Procedure start 14:14 [email or web address] 02:15 PM Vitals capture started with the following parameters, Patient=Adult, Interval=5 min, Initial Bfiogwfe=492 mmHg, Deflation Rate=5 mmHg, Cuff placed on Right Arm 02:16 PM AFTV=889/96 mmhg, Comment=SR 02:19 PM Time: 14:19 Oxygen on at 2 L/min per nasal cannula by Maira Coronado RN [email or web address] 02:19 PM Time: 14:19 Versed 2 mg Intravenous Given by Maira Coronado [email or web address] 02:20 PM Time: 14:19 Fentanyl 50 mcg Intravenous Given by Maira Coronado RN [email or web address] 02:20 PM Time: 14:20 Patient comfortable and pain free: Yes [email or web address] 02:20 PM Time: 14:20LOC: 5 = Fully awake and oriented or at pre-proc level [email or web address] 02:20 PM Clinical Presentation: Non-STEMI [email or web address] 02:20 PM Recorded ECG: HR=73 Condition=Condition 1 02:21 PM HR=77 bpm, YWQF=393/105 mmhg, SpO2=94.0 %, Resp=27 B/min, Comment=SR 02:23 PM Time: 14:23 Oxygen on at 4 L/min per nasal cannula by Maira Coronado RN [email or web address] 02:26 PM HR=74 bpm, DUZX=733/96 mmhg, SpO2=92.0 %, Resp=5 B/min, Comment=SR 02:28 PM Time out performed according to hospital policy [email or web address] 02:29 PM Time: 14:29 Benadryl 25 mg Intravenous Given by Maira Coronado RN [email or web address] 02:30 PM Time: 14:30 18 ml Lidocaine 2% to right groin Subcutaneous Given by Robyn Oro MD, [facility] [email or web address] 02:30 PM Access obtained by percutaneous puncture. 5Fr 10cm Terumo [place] sheath placed in right Femoral artery. [id number] [email or web address] 02:30 PM 0.035 145cm Navilyst 3mmJ wire [id number] [email or web address] 02:31 PM Pressure channel 1 zeroed. 02:31 PM HR=93 bpm, NTJV=998/97 mmhg, SpO2=97.0 %, Resp=5 B/min, Comment=SR 02:31 PM 5Fr FL 4 catheter inserted over the wire [facility] [email or web address] 02:32 PM LCA angiography performed in multiple views. [email or web address] 02:32 PM Recorded Pressure: Ao, HR=71, Condition=Condition 1 (Aorta) Ao 116/89/102 02:33 PM Catheter removed [email or web address] 02:33 PM 5Fr FR 4 catheter inserted over the wire DN [email or web address] 02:35 PM Time: 14:20LOC: 4 = Oriented but drowsy [email or web address] 02:35 PM Time: 14:20 Patient comfortable and pain free: Yes [email or web address] 02:35 PM RCA angiography performed in multiple views. [email or web address] 02:35 PM Recorded Pressure: Ao, HR=74, Condition=Condition 1 (Aorta) Ao 135/107/121 02:36 PM HR=71 bpm, PZBQ=104/100 mmhg, SpO2=96.0 %, Resp=12 B/min, Comment=SR 02:37 PM Catheter removed [email or web address] 02:37 PM 5Fr Pigtail catheter inserted over the wire [facility] [email or web address] 02:37 PM Catheter selectively placed in left ventricle [email or web address] 02:37 PM Pressure channel 1 zeroed. 02:38 PM Recorded Pressure: LV, HR=86, Condition=Condition 1 (Left Ventricle) LV 109/36/11 02:38 PM Bolus angiogram of left Ventricle complete: 8 ml/sec for a total of 24 mls [email or web address] 02:38 PM Recorded Pressure: LV, HR=73, Condition=Condition 1 (Left Ventricle) LV 109/10/10 02:38 PM Recorded Pressure: LV, Ao, HR=73, Condition=Condition 1 (Left Ventricle) LV 118/2/48, (Aorta) Ao 105/80/94 02:40 PM Catheter removed [email or web address] 02:40 PM PCI Status Urgent [email or web address] 02:40 PM PCI Indication: PCI for high risk Non-STEMI or unstable angina [email or web address] 02:40 PM Sheath exchanged for a 6 Fr 11 cm Cordis Lidia sheath [id number] [email or web address] 02:40 PM 6Fr JR 4 Cordis guide catheter was used to cannulate the PCI vessel successfully. reused? No [email or web address] 02:40 PM .014 Prowater 180cm guide wire across target lesion- successful. reused? No [email or web address] 02:40 PM Lesion found in Distal RCA. Pre Stenosis: 99 Pre ANDRAE Flow: [email or web address] 02:40 PM Right Coronary, Right Posterior Descending Arteries with Right Posterolateral and Acute Marginal branches with 99 % stenosis. If graft is supplying this area, 0 % stenosis [email or web address] 02:41 PM HR=75 bpm, MKTB=868/90 mmhg, SpO2=95.0 %, Resp=15 B/min, Comment=SR 02:41 PM Time: 14:41 Angiomax 0.75mg/kg bolus: 18 ml Intravenous Given by Maira Coronado RN Amaya pump [email or web address] 02:41 PM Time: 14:41 Angiomax 1.75mg/kg/hr: 42 ml Intravenous Given by Maira Coronado RN Amaya pump [email or web address] 02:41 PM Inflation device was opened. [email or web address] 02:42 PM 2.0 mm x 12 mm Emerge Monorail balloon across target lesion- successful. reused? No [email or web address] 02:45 PM Recorded Pressure: Ao, HR=74, Condition=Condition 1 (Aorta) Ao 114/77/94 02:46 PM HR=70 bpm, AYOE=822/97 mmhg, SpO2=94.0 %, Resp=15 B/min, Comment=SR 02:47 PM Balloon inflated @ 8 everardo for 20 seconds [email or web address] 02:50 PM Recorded Pressure: Ao, HR=71, Condition=Condition 1 (Aorta) Ao 121/89/106 02:50 PM Time: 14:35 Patient comfortable and pain free: Yes [email or web address] 02:50 PM 2.5mm x 16mm Synergy bioabsorbable stent across target lesion- successful Lot #[id number] [email or web address] 02:50 PM Stent deployed @ 12 everardo for 30 seconds [email or web address] 02:51 PM HR=69 bpm, CTYL=912/94 mmhg, SpO2=95.0 %, Resp=14 B/min, Comment=SR 02:51 PM Stent delivery system removed intact. [email or web address] 02:51 PM Time: 14:51 Nitroglycerin 200 mcg Intracoronary Given by Robyn Oro MD, [facility] [email or web address] 02:53 PM Guide wire removed intact. [email or web address] 02:53 PM Guide catheter removed intact. [email or web address] 02:55 PM Time: 14:55 Brilinta 180 mg Orally Given by Maira Coronado RN [email or web address] 02:56 PM Procedure completed at 14:56 [email or web address] 02:56 PM Sign out completed: Radiation Dose 978.16 mGy Fluoro Time: 5.8 Isovue 370 - 200ml contrast 115 ml given by Robyn Oro MD, [facility]. Complications: NoneCardiac Rehab Consult needed: YesConfirmed administered medications: Yes [email or web address] 02:56 PM Isovue 370 - 200ml,1 Bottle(s) used. [email or web address] 02:56 PM Sheath left in place to be pulled on floor/holding areaV+Pad [email or web address] 02:56 PM Post ECG NSR [email or web address] 02:57 PM Post Blood Pressure 138/88 [email or web address] 02:57 PM 14:57 Post Pulses Bilateral DP 2+ [email or web address] 02:57 PM Information taught Cardiac Cath and PCI [email or web address] 02:57 PM Education needs Procedure, Plan of Care, and Responsibilities of Patient in Care [email or web address] 02:57 PM Learning barriers :None [email or web address] 02:57 PM Education Methods Verbal [email or web address] 02:57 PM Education evaluation Able to repeat information [email or web address] 02:57 PM Site status No bleeding/hematoma - Rt Groin as reported by Alejandro Goldsmith RT (R) at 14:57 [email or web address] 02:57 PM Opsite applied [email or web address] 03:00 PM Report given to Avtar MCKEON Pt taken to Holding room Room #1. 15:00 [email or web address] 03:00 PM Plavix, Effient or Brilinta given Yes [email or web address] 03:00 PM Delay to floor Bed availability [email or web address] 03:00 PM Family placed in consult room. [email or web address] 03:00 PM Patient out of room: 15:00 [email or web address] 03:02 PM Coronary Dominance: right [email or web address] 03:02 PM Lesion found in Proximal RCA. Pre Stenosis: 30 Pre ANDRAE Flow: [email or web address] 03:02 PM Lesion found in Mid RCA. Pre Stenosis: 30 Pre ANDRAE Flow: [email or web address] 03:02 PM Lesion found in LMCA. Pre Stenosis: 25 Pre ANDRAE Flow: [email or web address] 03:02 PM Lesion found in Proximal LAD. Pre Stenosis: 30 Pre ANDRAE Flow: [email or web address] 03:02 PM Lesion found in Mid LAD. Pre Stenosis: 30 Pre ANDRAE Flow: [email or web address] 03:02 PM Lesion found in 1st Diagonal. Pre Stenosis: 40 Pre ANDRAE Flow: [email or web address] 03:03 PM Lesion found in Proximal Circumflex. Pre Stenosis: 30 Pre ANDRAE Flow: [email or web address] 03:03 PM Lesion found in Mid Circumflex. Pre Stenosis: 30 Pre ANDRAE Flow: [email or web address] 03:03 PM Lesion found in Distal Circumflex. Pre Stenosis: 40 Pre ANDRAE Flow: [email or web address] 03:03 PM Left Main Coronary Artery with 25% stenosis [email or web address] 03:03 PM Proximal Left Anterior Descending Coronary Artery with 30% stenosis. If graft is supplying this territory, 0 % stenosis. [email or web address] 03:04 PM Mid/Distal Left Anterior Descending Coronary Artery and diagonal branches with 40% stenosis. If graft is supplying this area, 0 % stenosis [email or web address] 03:04 PM Circumflex, Obtuse Marginal, Left Posterior Descending, and Left Posterolateral Coronary Arteries with 40 % stenosis. If graft is supplying this area, 0 % stenosis [email or web address] 03:13 PM pt resting comfortably in holding room call light within reach no needs at this time tsites 04:48 PM Patient c/o feeling uncomfortable.Noted to be pale. Patient noted to be diaphoretic. IV fluids WO. Patient placed in Trendelenburg position. [email or web address] 04:54 PM Patient states that he feels better at present. [email or web address] 05:39 PM Sheath pulled by Saul Meyers RT scoates 05:51 PM Report given to crystal MCKEON Pt taken to E Room #34. 17:51 tsites 05:51 PM Delay to floor Bed availability tsites 05:51 PM Patient out of room: 17:51 tsites Complications Complication None Hemodynamics Pressures Site Systolic/A Wave Diastolic/V Wave Mean AO 116 89 102 AO 135 107 121 LV 109 36 11 LV 109 10 10 LV 118 2 48 AO 105 80 94 AO 114 77 94 AO 121 89 106 Post Procedure Information Blood Pressure: 138/88 mmHg Rhythm: NSR Post procedural instructions were given Closure Device Time Device Success/Fail 08/23/2016 5:50:00 PM Manual Compression Successful Site Checks Time Location Status Staff Sheath In? Note 02:57 PM Rt Groin No bleeding/hematoma Alejandro Goldsmith RT (R) 03:12 PM Rt Groin No bleeding/ No Hematoma Sites, Amna RT (R) Yes 03:30 PM Rt Groin No bleeding/ No Hematoma Layla Blankenship RN Yes 03:45 PM Rt Groin No bleeding/ No Hematoma Layla Blankenship RN Yes 04:00 PM Rt Groin No bleeding/ No Hematoma Layla Blankenship RN Yes 04:15 PM Rt Groin No bleeding/ No Hematoma Luis AlbertoAvtar alcaraz RN Yes 04:30 PM Rt Groin No bleeding/ No Hematoma Luis AlbertoAvtar RN Yes 04:45 PM Rt Groin No bleeding/ No Hematoma Luis Alberto, Avtar RN Yes 05:00 PM Rt Groin No bleeding/ No Hematoma Luis Alberto, Avtar RN Yes 05:15 PM Rt Groin No bleeding/ No Hematoma Cliff, Maira RN Yes 05:30 PM Rt Groin No bleeding/ No Hematoma Cliff, Maira RN 05:40 PM Rt Groin No bleeding/ No Hematoma Webb, Maira RN 05:50 PM Rt Groin No bleeding/ No Hematoma Sites, Amna RT (R) No No Pulses Time Site Pre-Procedure Post-Procedure Note 08/23/2016 1:20:00 PM Bilateral DP 2+ 08/23/2016 1:20:00 PM Bilateral radial 2+ 2:57:00 PM Bilateral DP 2+ 08/23/2016 3:12:00 PM Bilateral DP \\T\\ PT 2+ 08/23/2016 4:15:00 PM Bilateral DP \\T\\ PT 2+ 08/23/2016 5:00:00 PM Bilateral DP \\T\\ PT 2+ 08/23/2016 5:15:00 PM Bilateral DP \\T\\ PT 2+ 08/23/2016 5:30:00 PM Bilateral DP \\T\\ PT 2+ 08/23/2016 5:40:00 PM Bilateral DP \\T\\ PT 2+ 08/23/2016 5:50:00 PM Bilateral DP \\T\\ PT 2+ Updated by Amna Meyers RT (R) on 08/23/2016 5:52:01 PM Amna Meyers RT electronically signed on 08/23/2016 5:52:43 PM with status of Final
[2016-08-24 06:39] VITALS: BP 143/102
[2016-08-24] MEDS: Aspirin 81 MG TAB.CHEW PO SCH (09:14)
--- NOTE | 2016-08-24 10:36 | Discharge Summary ---
Date of Encounter: 08/24/16 Time of Encounter: 09:30 - Discharge Diagnosis (1) Chest pain Priority: Primary Status: Acute Qualifiers: Chest pain type: precordial pain Qualified Code(s): R07.2 - Precordial pain (2) Abnormal stress test Priority: Secondary Status: Acute (3) Hyperlipidemia Priority: Secondary Status: Chronic Qualifiers: Hyperlipidemia type: mixed hyperlipidemia Qualified Code(s): E78.2 - Mixed hyperlipidemia (4) Essential hypertension Priority: Secondary Status: Chronic (5) Elevated troponin Priority: Secondary Status: Acute (6) Coronary artery disease Priority: Secondary Status: Acute Qualifiers: Coronary Disease-Associated Artery/Lesion type: [place]all artery [place] vs. transplanted heart: marshall heart Associated angina: with other forms of angina Qualified Code(s): I25.118 - Atherosclerotic heart disease of marshall coronary artery with other forms of angina pectoris - Discharge Medications Prescriptions: Aspirin [Lo-Dose Aspirin EC] 81 mg PO DAILY #30 tablet. Atorvastatin [Lipitor] 80 mg PO HS #30 tablet Clopidogrel [Plavix] 75 mg PO DAILY #30 tablet Lisinopril [Zestril] 5 mg PO DAILY #30 tablet Metoprolol [Lopressor] 25 mg PO BID #60 tablet Home Medications: Tamsulosin [Flomax] 0.4 mg PO DAILY 08/22/16 [History] Aspirin [Lo-Dose Aspirin EC] 81 mg PO DAILY #30 tablet. 08/24/16 [Rx] Atorvastatin [Lipitor] 80 mg PO HS #30 tablet 08/24/16 [Rx] Clopidogrel [Plavix] 75 mg PO DAILY #30 tablet 08/24/16 [Rx] Lisinopril [Zestril] 5 mg PO DAILY #30 tablet 08/24/16 [Rx] Metoprolol [Lopressor] 25 mg PO BID #60 tablet 08/24/16 [Rx] Allergies/Adverse Reactions: Allergies clarithromycin [From Biaxin] Allergy (Verified 08/22/16 18:57) Rash Procedures/tests Complete & Pending: Procedures Performed prior 72 hours Category Date Time Status CL Cardiac Catheterization [CL] Routine Guest Room Inspector 08/23/16 13:11 Completed NM latisha perf SPECT multi [NM] Routine Exams 08/23/16 02:07 Taken ECG 12 lead ECG [ECG] Stat Y 08/23/16 15:25 Ordered EV echocardiogram Routine Y 08/24/16 14:02 Completed SP exercise nuclear stress Routine Y 08/23/16 02:07 Completed Date of admission: 08/22/16 20:44 Primary care physician: Izaiah Marrufo, Consults: 08/23/16 11:23 Consult to Cardiology [CONS] Routine Comment: Consulting Provider: Cardiology Lorna Reason for Consult: Chest pain, slight troponin rise, abnormal stress test Time Notified: 11:23 Call Completed: Yes 08/23/16 14:05 Consult to Cardiac Rehabilitation-Phase1 [CONS] Routine Comment: Reason for Consult: elevated troponin, suspect NSTEMI Call Completed: No Discharging clinician: William Bro Anticipated date of discharge: 08/24/16 - Patient Status Disposition: Home, Self-Care Condition: Good Functional capacity at discharge: independent ambulation Overall status at discharge: patient is progressing back to baseline - Discharge Instructions Instructions: Myocardial Infarction (DC), Chest Pain (DC), Left Heart Catheterization (DC), Right Heart Catheterization (DC), Chronic Hypertension (DC ) Follow Up With: Izaiah Marrufo MD [Primary Care Provider] - Additional Instructions: RISK FACTORS: STOP SMOKING: If you smoke, STOP. Smoking or tobacco use significantly increases your risk of heart disease because nicotine causes the arteries to narrow or constrict. It also causes fats to stick to the artery. Your chances of having a heart attack are greatly increased if you continue to smoke. For more information, call the education line for smoking cessation 8-381-SXIMKSS EAT A LOW FAT/CHOLESTEROL/SODIUM DIET: This diet may help reduce your chances of having a heart attack. LIFTING: Avoid lifting anything more than 10 pounds for 5-7 days Prior to straining, laughing, sneezing and/or coughing, apply manual pressure directly over insertion site. ACTIVITY: You may walk or climb stairs as tolerated You can resume sexual activity as tolerated In general, you are encouraged to engage in a minimum of 30 minutes or more of moderate intensity physical activity, such as brisk walking, daily or at least 3 -4 times weekly BATHING Do not submerge the site into water (bath tub, hot tub, swimming pool) for 1 week. This can be a source for infection into the blood stream. You may shower after 24 hours SITE CARE: After 24 hours, you may remove the dressing and leave the site open to air. Keep the site clean and dry. Clean gently and pat dry. You can expect bruising and tenderness that gradually resolve within a week or two. Return to work as instructed per your physician Resume driving as instructed per physician Keep all scheduled follow up appointments Resume medications as instructed IMPORTANT: If prescribed a Platelet Aggregation Inhibitor such as, Plavix, Brilinta or Effient: Duration of therapy is minimum one year These medications are often used in combination with Aspirin in prevention of future heart attacks Never discontinue unless consult with your Broadcast Meteorologist STROKE (CVA) Risk factors for a stroke are: Age, cigarette smoking, diabetes, excessive alcohol consumption, family history, high blood pressure, overweight, physical inactivity, prior stroke, heart attack, diagnosis of carotid artery stenosis or other artery disease. Warning signs: Sudden numbness or weakness of the face, arm or leg; especially on one side of the body, sudden confusion, trouble speaking or understanding, sudden trouble seeing in one or both eyes, sudden trouble walking, dizziness, loss of balance or coordination, sudden severe headache with no cause. Call 911 or go to the Emergency Room. CONGESTIVE HEART FAILURE: If you have been diagnosed with Congestive Heart Failure (CHF) and your symptoms return, make an appointment with your physician Weigh yourself daily. Notify your physician if you have a weight gain of two or more pounds in one day or five or more pounds in one week. If you experience any difficulty breathing, please call 911 BLEEDING: Although the risk of bleeding is minimal, it can happen. If you have any bleeding from the site, apply firm pressure above the puncture site for 10-15 minutes. If the bleeding does not stop, continue manual pressure and call 911 Contact your physician if: You develop a fever greater than 101 degrees Fahrenheit Your site becomes reddened or has any drainage You have an increase in pain or burning at the site or if a large knot forms at the site. If you experience chest pain, shortness of breath, dizziness, or extreme tiredness, stop the activity and rest. Please notify your physicians office if you experience any of these symptoms and they are not relieved by rest please call 911! - Diet and Activity Activity: as per the cardiac rehab, increase activity as tolerated Diet: low fat, low cholesterol, low salt diet Hospital course: Mr. Montes De Oca is a 56 year old male patient with history of hyperlipidemia, essential hypertension who came into the ER with complaints of chest pain. During workup he was found to have slight elevation in his troponin at 0.05. His EKG showed some nonspecific ST segment changes without any elevation. As such he was observed in the hospital initially with telemetry and then underwent cardiac stress test which showed reversible ischemic changes in the inferior wall. As such cardiology was consulted. The patient underwent left heart catheterization and was found to have severe 1 vessel coronary artery disease involving the distal right coronary artery. He underwent successful PTCA with drug-eluting stent into the distal RCA. He has been chest pain-free since then. Cardiology has cleared him for discharge. Patient will be discharged today on aspirin, Plavix, beta duran, statin and LUISITO inhibitor. A 2-D echocardiogram done here showed a normal ejection fraction of 55% with some mild diastolic dysfunction. He will follow up with cardiology after discharge for further management of his coronary artery disease. - Time Spent with Patient Total time spent providing and/or coordinating discharge services: Greater than 30 minutes (35 min) - Constitutional Vitals: Temp Pulse Resp BP Pulse Ox 97.8 F 67 15 143/102 94 08/24/16 06:36 08/24/16 06:36 08/24/16 06:36 08/24/16 06:36 08/24/16 06:36 General appearance: Present: A&O X 3, pleasant, no acute distress, answers questions appropriately - Respiratory Respiratory exam: Present: CTAB. Absent: accessory muscle use, rales, rhonchi, wheezes - Cardiovascular Cardiovascular exam: Present: RRR, +S1, +S2. Absent: diastolic murmur, gallop, rubs, systolic murmur - GI/Abdominal GI/Abdominal exam: Present: normal bowel sounds, soft, no peritoneal signs. Absent: distended, tenderness - Extremities Exam Extremities exam: Present: warm, radial pulses palpable and symetrical. Absent : calf tenderness, cyanotic, pedal edema - Neurological Exam Neurological exam: Present: alert, oriented X3, no focal deficits. Absent: facial droop, speech deficit - Attending Attestation This document has been at least partially created by [employer] recognition technology by Dr. Bro. Errors in grammar, wording or other phrases may exist. If errors are found after the documentation is signed, they will be addressed individually in the addendum section of this document when appropriate.
--- NOTE | 2016-08-24 10:50 | Cardiology Progress Note ---
Date of Encounter: 08/24/16 Time of Encounter: 09:00 Assessment and Plan (1) Chest pain Current Visit: Yes Status: Acute Per Cardiology: Currently chest pain-free. Qualifiers: Chest pain type: precordial pain Qualified Code(s): R07.2 - Precordial pain (2) NSTEMI (non-ST elevated myocardial infarction) Current Visit: Yes Status: Acute Per Cardiology: Troponins elevated at 0.05, 0.06, and 0.05. Stress test results showed the size , moderate to severe intensity, partially reversible inferior perfusion defect suggestive of small prior basal inferior infarction with significant residual ischemia involving the remainder of the inferior segments. Echo showed EF preserved at 55%, mild diastolic dysfunction, no significant valvular dysfunction, no pulmonary hypertension, no segment wall motion abnormalities. Status post left heart catheterization with PTCA/drug-eluting stent to distal RCA 99% stenosis. Has remaining nonobstructive disease with left main 25%, proximal LAD 30%, mid LAD 30%, diagonal 140%, proximal circumflex 30%, mid circumflex 30%, and distal circumflex 40%, proximal RCA 30%, mid RCA 30%. Suspect NSTEMI with LHC showing disease. On aspirin, plavix, statin, beta duran. Currently on nitroglycerin pills. Recommend DC home with nitroglycerin. Patient provided instructions regarding importance of uninterrupted aspirin and Plavix for at least 1 year. Right groin site care and management instructions provided. Recommend patient to remain off work for least 2 weeks and will reevaluate in outpatient setting. All questions answered. Cardiology will sign off, reconsult as needed, follow-up scheduled. Discussed with primary service and discharged pending today. (3) Abnormal stress test Current Visit: Yes Status: Acute Per cardiology: Abnormal nonexercise nuclear stress test. Discussion w patient/family: The assessment and plan as outlined above was discussed with the patient and/or family members who expressed understanding and agreement. All questions were answered. Thank you for involving us in the care of your patient. Please call with any questions. Subjective Principal diagnosis: NSTEMI, CAD Interval history: Patient denies any chest pain, short of breath, palpitations overnight. Denies any concerns or complications regarding his right groin site. Objective Selected Entries 08/24/16 06:36 08/24/16 09:21 Temperature 97.8 F Pulse Rate 67 Respiratory Rate 15 Blood Pressure 143/102 O2 Sat by Pulse Oximetry 94 Oxygen Delivery Method Room Air General: Conversant, No Apparent Distress HEENT: Atraumatic, Normocephaly, Mucus Membranes Moist Neck: No JVD, Normal carotid pulses Cardiac: Reg Rate and Rhythm, Normal S1 and S2, No Murmur Lungs: Normal Breath Sounds, No Wheeze, Rales, Rhonchi Neuro: Alert and responsive, No focal deficits noted Abdomen: Soft, Non-Tender Skin: No rashes noted on visualized skin, Other (Right groin site dry and intact , no hematoma, no ecchymosis, right Pursell's pedis and posterior tibial pulses 2+ palpable) Musculoskeletal: No Chest Wall Tenderness Extremities: No Clubbing, No Cyanosis, No Edema, Normal Pulses Results 08/23/16 03:30 08/23/16 03:30 Lab Results Laboratory Tests 08/22/16 08/23/16 08/23/16 19:23 03:30 11:39 Troponin I 0.05 H* 0.06 H* 0.05 H* Active Medications Aspirin (Aspirin) 81 mg PO DAILY [facility] Stop: 02/22/17 09:01 Last Admin: 08/24/16 09:14 Dose: 81 mg Atorvastatin Calcium (Lipitor) 80 mg PO HS [facility] Stop: 02/22/17 21:01 Last Admin: 08/23/16 19:47 Dose: 80 mg Clopidogrel Bisulfate (Plavix) 75 mg PO DAILY [facility] Stop: 02/23/17 09:01 Last Admin: 08/24/16 09:13 Dose: 75 mg Metoprolol Tartrate (Lopressor) 25 mg PO BID [facility] Stop: 02/22/17 21:01 Last Admin: 08/24/16 09:14 Dose: 25 mg Naloxone HCl (Narcan) 0.4 mg IVP Q2MIN PRN PRN Reason: Opioid Reversal Stop: 02/21/17 22:27 Nitroglycerin (Nitroglycerin) 0.4 mg SL Q5MIN PRN PRN Reason: Chest Pain Stop: 02/22/17 12:22 Tamsulosin HCl (Flomax) 0.4 mg PO HS [facility] PRN Reason: Protocol Stop: 02/21/17 21:01 Last Admin: 08/23/16 19:46 Dose: 0.4 mg - Imaging and Cardiology Echo: report reviewed Cardiac cath: report reviewed Consult Discharge Plan - Plan Instructions: Myocardial Infarction (DC), Chest Pain (DC), Left Heart Catheterization (DC), Right Heart Catheterization (DC), Chronic Hypertension (DC ) Additional Instructions: RISK FACTORS: STOP SMOKING: If you smoke, STOP. Smoking or tobacco use significantly increases your risk of heart disease because nicotine causes the arteries to narrow or constrict. It also causes fats to stick to the artery. Your chances of having a heart attack are greatly increased if you continue to smoke. For more information, call the education line for smoking cessation 4-654-SZTJUAZ EAT A LOW FAT/CHOLESTEROL/SODIUM DIET: This diet may help reduce your chances of having a heart attack. LIFTING: Avoid lifting anything more than 10 pounds for 5-7 days Prior to straining, laughing, sneezing and/or coughing, apply manual pressure directly over insertion site. ACTIVITY: You may walk or climb stairs as tolerated You can resume sexual activity as tolerated In general, you are encouraged to engage in a minimum of 30 minutes or more of moderate intensity physical activity, such as brisk walking, daily or at least 3 -4 times weekly BATHING Do not submerge the site into water (bath tub, hot tub, swimming pool) for 1 week. This can be a source for infection into the blood stream. You may shower after 24 hours SITE CARE: After 24 hours, you may remove the dressing and leave the site open to air. Keep the site clean and dry. Clean gently and pat dry. You can expect bruising and tenderness that gradually resolve within a week or two. Return to work as instructed per your physician Resume driving as instructed per physician Keep all scheduled follow up appointments Resume medications as instructed IMPORTANT: If prescribed a Platelet Aggregation Inhibitor such as, Plavix, Brilinta or Effient: Duration of therapy is minimum one year These medications are often used in combination with Aspirin in prevention of future heart attacks Never discontinue unless consult with your Candy Cutter Machine STROKE (CVA) Risk factors for a stroke are: Age, cigarette smoking, diabetes, excessive alcohol consumption, family history, high blood pressure, overweight, physical inactivity, prior stroke, heart attack, diagnosis of carotid artery stenosis or other artery disease. Warning signs: Sudden numbness or weakness of the face, arm or leg; especially on one side of the body, sudden confusion, trouble speaking or understanding, sudden trouble seeing in one or both eyes, sudden trouble walking, dizziness, loss of balance or coordination, sudden severe headache with no cause. Call 911 or go to the Emergency Room. CONGESTIVE HEART FAILURE: If you have been diagnosed with Congestive Heart Failure (CHF) and your symptoms return, make an appointment with your physician Weigh yourself daily. Notify your physician if you have a weight gain of two or more pounds in one day or five or more pounds in one week. If you experience any difficulty breathing, please call 911 BLEEDING: Although the risk of bleeding is minimal, it can happen. If you have any bleeding from the site, apply firm pressure above the puncture site for 10-15 minutes. If the bleeding does not stop, continue manual pressure and call 911 Contact your physician if: You develop a fever greater than 101 degrees Fahrenheit Your site becomes reddened or has any drainage You have an increase in pain or burning at the site or if a large knot forms at the site. If you experience chest pain, shortness of breath, dizziness, or extreme tiredness, stop the activity and rest. Please notify your physicians office if you experience any of these symptoms and they are not relieved by rest please call 911! Referrals: Izaiah Marrufo MD [Primary Care Provider] - Prescriptions: Aspirin [Lo-Dose Aspirin EC] 81 mg PO DAILY #30 tablet. Atorvastatin [Lipitor] 80 mg PO HS #30 tablet Clopidogrel [Plavix] 75 mg PO DAILY #30 tablet Lisinopril [Zestril] 5 mg PO DAILY #30 tablet Metoprolol [Lopressor] 25 mg PO BID #60 tablet
== END 2016-08-24 14:00 | disposition home or self-care (01) ==
LOC: 3BNU 18:46 → EMEROO 18:46 → SUATTDRO 20:44 → 3BNU 21:55 → 2NENU 08-23 16:30
PROVIDERS: ADMIT Registered Nurse; ATTEND Internal Medicine

== ENCOUNTER 2018-08-21 18:48 | Observation (INO) ==
[~2018-08-21 18:48] MED LIST: Adenosine 90 MG/30 ML MLS IV ONE
[2018-08-21 19:26] LABS: Basophils % 0.6 %; Eosinophils # 0.1 K/mcL (0.0-0.6); Hemoglobin 15.1 g/dL (12.9-16.9); Immature Granulocytes % 0.3 % (0-4); Lymphocytes # 1.8 K/mcL (0.6-4.6); Lymphocytes % 28.7 %; Mean Corpuscular HGB Conc 34.3 g/dL (31.6-35.5); Mean Corpuscular Volume 87.3 fL (83.0-100.0); Mean Platelet Volume 10.9 fL (9.4-12.4); Monocytes # 0.5 K/mcL (0.0-1.3); Monocytes % 7.6 %; Neutrophils # 3.9 K/mcL (1.6-8.9); Platelet Count 204 K/mcL (140-400); Red Blood Count 5.04 M/mcL (4.19-5.50); Red Cell Distribution Width 12.3 % (11.5-14.5); Segmented Neutrophils % 60.8 %
[2018-08-21 19:32] LABS: Prothrombin Time 11.2 Seconds (9.4-12.1)
--- NOTE | 2018-08-21 19:32 | Emergency Department Note ---
Disposition Clinical Impression: Unstable angina, Abnormal stress test Chest pain Qualifiers: Chest pain type: unspecified Qualified Code(s): R07.9 - Chest pain, unspecified Disposition: Admitted As Inpatient Condition: Undetermined Time of Disposition: 21:11 Chest Pain HPI - General Chief Complaint: ED General Medical Stated Complaint: sob/dizzy/fatigue Time Seen by Provider: 08/21/18 18:59 Source: patient, family Mode of arrival: ambulatory Limitations: no limitations Vital Signs Reviewed: Yes Nursing Notes Reviewed: Yes - History of Present Illness HPI Narrative: 58-year-old male with history of hypertension, hyperlipidemia, prediabetes arrives to the emergency department with complaint of shortness of breath, generalized fatigue. Patient states that he is been expressing symptoms and was noted to have an elevated troponin a few days ago. The patient at that point was receiving a stress test which demonstrated a abnormal stress test with a lower heart abnormality consistent with ischemia. Patient was due to have a cardiac catheter scheduled for this coming Friday but the patient had a r escheduled earlier today. The patient's states that he has continued to tears worsening symptoms to include shortness of breath with ambulation, extreme fatigue and intermittent episodes of confusion when these episodes occur. The patient denies any active chest pain and denies any other complaints at this time other than this generalized fatigue. He denies any unilateral leg swelling, unilateral leg swelling, hemoptysis, recent surgeries or immobilizations, history of DVT or PE. Patient denies any other complaints including abdominal pain, focalized deficits, headache, fevers, chills. Severity scale (1-10): 0 - Related Data Home Medications Medication Instructions Recorded Confirmed Tamsulosin [Flomax] 0.4 mg PO DAILY 08/22/16 10/03/16 Previous Rx's Medication Instructions Recorded Aspirin [Lo-Dose Aspirin EC] 81 mg PO DAILY #30 tablet. 08/24/16 Atorvastatin [Lipitor] 80 mg PO HS #30 tablet 08/24/16 Clopidogrel [Plavix] 75 mg PO DAILY #30 tablet 08/24/16 Lisinopril [Zestril] 5 mg PO DAILY #30 tablet 08/24/16 Metoprolol [Lopressor] 25 mg PO BID #60 tablet 08/24/16 Allergies Allergy/AdvReac Type Severity Reaction Status Date / Time clarithromycin [From Biaxin] Allergy Rash Verified 08/22/16 18:57 All systems ED: reviewed and negative except as stated. Constitutional: Denies: fever, chills, weakness Eyes: Denies: vision change ENT ED: Denies: dysphagia Cardiovascular: Reports: chest pain, dyspnea on exertion. Denies: orthopnea, edema, syncope Respiratory: Reports: dyspnea. Denies: cough, sputum production Gastrointestinal: Denies: abdominal pain, nausea, vomiting Genitourinary: Denies: urgency, dysuria Musculoskeletal: Denies: back pain Integumentary: Denies: rash Neurological: Denies: headache Chest Pain PMH - Past Medical History Medical history: Reports: hyperlipidemia, hypertension, myocardial infarction, osteoporosis, other Surgical history: Reports: other (trigger finger) Psychiatric history: Reports: no psych history - Social History Smoking Status: Former smoker Alcohol use: Reports: none Drug use: Reports: none Physical Exam - General Limitations: no limitations General appearance: alert, in no apparent distress - Head Head exam: atraumatic, normocephalic, normal inspection - Eye Eye exam: Present: normal appearance, PERRL, EOMI - ENT ENT exam: normal exam, normal oropharynx, mucous membranes moist - Neck Neck exam: Present: normal inspection, full ROM, trachea midline - Chest Chest inspection: Present: normal inspection, symmetric chest wall rise - Respiratory Respiratory exam: Present: normal lung sounds bilaterally - Cardiovascular Cardiovascular exam: Present: regular rate, normal rhythm, normal heart sounds - Abdominal Exam Abdominal exam: Present: soft, Non-Tender. Absent: tenderness, distention, g uarding, rebound, rigidity - Extremities Exam Extremities exam: Present: normal inspection, full ROM, normal capillary refill. Absent: tenderness, pedal edema - Neurological Exam Neurological exam: Present: alert, oriented X3 - Skin Skin exam: Present: warm, dry, intact, normal color Course Vital Signs Temperature 99.0 F 08/21/18 18:52 Pulse Rate 74 08/21/18 18:52 Respiratory Rate 16 08/21/18 18:52 Blood Pressure 141/84 08/21/18 18:52 O2 Sat by Pulse Oximetry 98 08/21/18 18:52 Temperature 99.0 F 08/21/18 18:52 Pulse Rate 86 08/21/18 20:50 Respiratory Rate 18 08/21/18 20:50 Blood Pressure 129/77 08/21/18 20:50 O2 Sat by Pulse Oximetry 96 08/21/18 20:50 Oxygen Delivery Oxygen Delivery Room Air Chest Pain - MDM Narrative Medical decision making narrative: Patient's workup in the emergency department demonstrates no acute process. Given the patient's continued shortness of breath upon ambulation and gen eralized fatigue, we will discuss official cardiology and likely admit the patient to the hospital for further workup and care. No further questions or concerns noted at this time. We will administer aspirin here in the emergency department. Accepted by Dr. Adams. I also consulted and spoke with Dr. Oro who agreed with plan of care. - Medical Records Medical records reviewed: Yes I reviewed the patient's medical records. - Lab Data Lab results reviewed: Yes I reviewed the patient's lab results. Result diagrams: 08/21/18 18:59 08/21/18 18:59 Lab Results 08/21/18 08/21/18 08/21/18 Range/Units 18:59 18:59 18:59 WBC 6.4 D (4.3-11.1) K/mcL RBC 5.04 (4.19-5.50) M/mcL Hgb 15.1 (12.9-16.9) g/dL Hct 44.0 (37.5-50.1) % MCV 87.3 (83.0-100.0) fL MCH 30.0 (28.0-33.3) pg MCHC 34.3 (31.6-35.5) g/dL RDW 12.3 (11.5-14.5) % Plt Count 204 (140-400) K/mcL MPV 10.9 (9.4-12.4) fL Immature Gran % 0.3 (0-4) % Seg Neutrophils % 60.8 % Lymphocytes % 28.7 % Monocytes % 7.6 % Eosinophils % 2.0 % Basophils % 0.6 % Neutrophils # 3.9 (1.6-8.9) K/mcL Lymphocytes # 1.8 (0.6-4.6) K/mcL Monocytes # 0.5 (0.0-1.3) K/mcL Eosinophils # 0.1 (0.0-0.6) K/mcL Basophils # 0.0 (0.0-0.2) K/mcL PT (9.4-12.1) Seconds INR APTT (26.0-36.0) Seconds Sodium 141 (136-145) mEq/L Potassium 3.7 (3.5-5.1) mEq/L Chloride 107 (98-107) mEq/L Carbon Dioxide 25 (23-29) mEq/L BUN 17 (6-20) mg/dL Creatinine 1.02 (0.70-1.30) mg/dL Est GFR ( Amer) > 60 (> 60) Est GFR (Non-Af Amer) > 60 (> 60) BUN/Creatinine Ratio 17 (6-26) Glucose 172 H (70-105) mg/dL Calculated Osmolality 298 (280-300) Calcium 9.6 (8.6-10.3) mg/dL Troponin I < 0.03 (< 0.04) ng/mL B-Natriuretic Peptide 29 (Less than 100) pg/mL 08/21/18 Range/Units 18:59 WBC (4.3-11.1) K/mcL RBC (4.19-5.50) M/mcL Hgb (12.9-16.9) g/dL Hct (37.5-50.1) % MCV (83.0-100.0) fL MCH (28.0-33.3) pg MCHC (31.6-35.5) g/dL RDW (11.5-14.5) % Plt Count (140-400) K/mcL MPV (9.4-12.4) fL Immature Gran % (0-4) % Seg Neutrophils % % Lymphocytes % % Monocytes % % Eosinophils % % Basophils % % Neutrophils # (1.6-8.9) K/mcL Lymphocytes # (0.6-4.6) K/mcL Monocytes # (0.0-1.3) K/mcL Eosinophils # (0.0-0.6) K/mcL Basophils # (0.0-0.2) K/mcL PT 11.2 (9.4-12.1) Seconds INR 1.0 APTT 30.6 (26.0-36.0) Seconds Sodium (136-145) mEq/L Potassium (3.5-5.1) mEq/L Chloride (98-107) mEq/L Carbon Dioxide (23-29) mEq/L BUN (6-20) mg/dL Creatinine (0.70-1.30) mg/dL Est GFR ( Amer) (> 60) Est GFR (Non-Af Amer) (> 60) BUN/Creatinine Ratio (6-26) Glucose (70-105) mg/dL Calculated Osmolality (280-300) Calcium (8.6-10.3) mg/dL Troponin I (< 0.04) ng/mL B-Natriuretic Peptide (Less than 100) pg/mL - Radiology Data Radiology results reviewed: Yes I reviewed the patient's radiology results. Chest X-Ray 08/21/18 19:00 IMPRESSION: No significant finding in the chest. D/ / Robbie Yap MD / Robbie Yap MD Interpreting Provider: Robbie Yap MD - EKG Data EKG attestation: Yes I reviewed and interpreted this EKG. EKG results narrative: Heart rate 72 beats for minute. Normal sinus rhythm. No ST elevation or ST depression noted. No acute changes noted. Attestation Statement - Attestation Attestation: Resident Attestation: I examined this patient and my medical decision making was reviewed with the Resident Physician. I agree with the documented findings, disposition and treatment plan as described except to the extent set forth below. We independently had [id number] contact with the patient. Patient presenting to the emergency department for worsening shortness of breath, fatigue and exertional capacity. Patient with an abnormal stress test as an outpatient. Patient has been unable to get in to have a cardiac catheterization performed secondary to rescheduling issues as well as insurance. Patient's symptoms have gone significantly worse. Patient will undergo further evaluation within the emergency department but given the abnormal stress test and worsening symptoms will undergo admission for further cardiac testing. Roverto espinoza is resting in bed comfortable in no acute distress, regular rate and rhythm, clear to auscultation bilaterally, no significant swelling to the lower extremities.
[2018-08-21 19:34] LABS: Activated Partial Thrombo Time 30.6 Seconds (26.0-36.0)
[2018-08-21 19:48] LABS: BUN/Creatinine Ratio 17 (6-26); Blood Urea Nitrogen 17 mg/dL (6-20); Calcium 9.6 mg/dL (8.6-10.3); Carbon Dioxide 25 mEq/L (23-29); Chloride 107 mEq/L (98-107); Glucose 172 mg/dL (70-105); Osmolality,Calculated 298 (280-300); Potassium 3.7 mEq/L (3.5-5.1); Sodium 141 mEq/L (136-145); Troponin I < 0.03 ng/mL (< 0.04); eGFR For Non-African Americans > 60 (> 60)
[2018-08-21] MEDS ORDERED: Aspirin 325 MG TABLET PO ONE (20:03)
[2018-08-21] MEDS ORDERED: Naloxone 0.4 MG/ML INJ IVP PRN (23:43)
[2018-08-21] MEDS ORDERED: Nitroglycerin 0.4 MG TAB.SUBL SL PRN (23:47)
[2018-08-22] MEDS: *HR* Heparin 5,000 UNIT/ML VIAL SQ SCH ×3 (01:03→15:02)
[2018-08-22 01:45] LABS: Basophils # 0.1 K/mcL (0.0-0.2); Basophils % 1.2 %; Eosinophils # 0.2 K/mcL (0.0-0.6); Eosinophils % 3.4 %; Hematocrit 42.7 % (37.5-50.1); Hemoglobin 14.6 g/dL (12.9-16.9); Immature Granulocytes % 0.2 % (0-4); Immature Platelets 4.3 % (1.1-6.1); Mean Corpuscular HGB Conc 34.2 g/dL (31.6-35.5); Mean Corpuscular Volume 87.9 fL (83.0-100.0); Mean Platelet Volume 10.8 fL (9.4-12.4); Monocytes # 0.6 K/mcL (0.0-1.3); Monocytes % 11.3 %; Neutrophils # 2.1 K/mcL (1.6-8.9); Platelet Count 187 K/mcL (140-400); Red Blood Count 4.86 M/mcL (4.19-5.50); Red Cell Distribution Width 12.6 % (11.5-14.5); Segmented Neutrophils % 42.9 %
[2018-08-22 02:04] LABS: Alanine Aminotransferase 46 Units/L (7-52); Albumin 4.1 g/dL (3.5-5.7); Albumin/Globulin Ratio 1.8 (1.1-2.2); Alkaline Phosphatase 36 Units/L (34-104); Aspartate Amino Transferase 21 Units/L (13-39); BUN/Creatinine Ratio 18 (6-26); Bilirubin,Total 0.5 mg/dL (0.3-1.0); Blood Urea Nitrogen 17 mg/dL (6-20); Calcium 9.4 mg/dL (8.6-10.3); Carbon Dioxide 24 mEq/L (23-29); Chloride 110 mEq/L (98-107); Globulin 2.3 g/dL (2.4-3.5); Glucose 98 mg/dL (70-105); Osmolality,Calculated 298 (280-300); Sodium 143 mEq/L (136-145); Total Protein 6.4 g/dL (6.4-8.9); eGFR For Non-African Americans > 60 (> 60)
--- NOTE | 2018-08-22 04:57 | Internal Med History&Physical ---
Date of Encounter: 08/22/18 Time of Encounter: 04:44 Internal Medicine - H&P: HPI Chief complaint: Fatigue/shortness of breath History of present illness: Mr. Montes De Oca is a 58 year old male with a past medical history of hyperlipidemia and coronary artery disease status post stent in 2016 who presented to the ED due to ongoing fatigue and dyspnea on exertion. Patient reports that for the past 2 months she has been feeling tired all the time. Becomes winded after climbing a short flight of stairs. No reports of chest pain per se, however, his current symptoms are similar to his prior symptoms before his left heart catheter in 2016. Patient was evaluated by his PCP and sent for a stress test. Nuclear stress test performed on August 03 which showed mild mid inferior ischemia on perfusion study. Patient reports that he was planning to have a left heart catheter on the however his symptoms of intermittent shortness of breath and fatigue continued to persist and decided to come in for evaluation. Patient otherwise denies any fever, chills, nausea, vomiting, abdominal pain, orthopnea, paroxysmal nocturnal dyspnea or lower extremity edema. Vitals on arrival were stable. Laboratory workup was otherwise unremarkable including an initial negative troponin. EKG showed normal sinus rhythm without evidence of ischemic changes. Patient will be admitted for possible left heart catheter in the morning. Past Med Surg Social Fam HX - Past Medical History Medical history: hyperlipidemia, hypertension, myocardial infarction, osteoporosis, other Additional medical history: prediabetic Psychiatric history: no psych history - Past Surgical History Surgical History: other (trigger finger) Additional surgical history: trigger finger repair R 4th digit, urogenital surgery. Cardiac Stent x1 - Social History Smoking Status: Former smoker Smokeless Tobacco Status: No Alcohol use: none Drug use: none - Family History Father Family Member Ethnicity: Non- Living Status: Hx Family Cardiac Disorders: Yes (stents) Hx Family Respiratory Disorders: No Hx Family Cancer: Yes (lung w/ metastasis) Hx Family GI Disorders: (Hernia, cholecyctectomy) Hx Family Endocrine Disorder: No Hx Family Neuromuscular Disorders: No Hx Family Neurologic Disorders: Yes (Migraines, CVA) Hx Family HEENT Disorders: No Hx Family Autoimmune Disorders: No Mother Hx Family Respiratory Disorders: Yes (COPD) Hx Family Autoimmune Disorders: Yes (Alzheimer's) Daughter Living Status: Still Living Hx Family Cardiac Disorders: Yes (SVT w/ ablation) Internal Medicine - H&P: Meds Tamsulosin [Flomax] 0.4 mg PO DAILY 08/22/16 [History] Aspirin [Lo-Dose Aspirin EC] 81 mg PO DAILY #30 tablet. 08/24/16 [Rx] Atorvastatin [Lipitor] 80 mg PO HS #30 tablet 08/24/16 [Rx] Clopidogrel [Plavix] 75 mg PO DAILY #30 tablet 08/24/16 [Rx] Lisinopril [Zestril] 5 mg PO DAILY #30 tablet 08/24/16 [Rx] Metoprolol [Lopressor] 25 mg PO BID #60 tablet 08/24/16 [Rx] Nitroglycerin [Nitrostat] 0.4 mg SL Q5MIN PRN 08/21/18 [History] Allergy/AdvReac Type Severity Reaction Status Date / Time clarithromycin [From Biaxin] Allergy Rash Verified 08/22/16 18:57 All Systems PM: A 10-system review of systems was performed and is negative for pertinent findings except as documented above in the HPI. - Constitutional Constitutional: no chills, no fever(s), no night sweats - EENT Eyes: no change in vision, no discharge, no pain, no photophobia Ears: no ear discharge, no ear pain, no tinnitus Nose, mouth and throat: no dysphagia, no nasal discharge, no neck pain, no sore throat - Cardiovascular Cardiovascular ROS IM: no chest pain, no diaphoresis, no dyspnea, no lightheadedness, no palpitations, no syncope - Respiratory Respiratory: no cough, no dyspnea, no wheezing, no excessive phlegm production - Gastrointestinal Gastrointestinal: no abdominal pain, no diarrhea, no hematemesis, no hematochezia, no melena, no nausea, no vomiting - Musculoskeletal Musculoskeletal ROS IM: no numbness, no tingling - Integumentary Integumentary IM: no rash, no unusual bruising - Neurological Neurological ROS: no confusion, no convulsions, no focal weakness, no numbness, no tingling, no tremor(s) - Hematologic/Lymphatic Hematologic/Lymphatic: no easy bruising - Constitutional Vitals: Temp Pulse Resp BP Pulse Ox 98.2 F 64 16 137/81 96 08/22/18 03:08/22/18 03:08/22/18 03:08/22/18 03:17 08/22/18 03:17 Exam: General: Alert and oriented 3 lying in bed in no acute distress Skin:Normal color, no rash, no lesions. HEENT:EOM, pupils equal, round and reactive. Cardiovascular:Normal S1 & S2, no rubs, murmurs or gallops. No JVD. Pulse regular. Lungs:Normal breath sounds, no wheezes or crackles. Abdomen:Soft, non-tender, no rigidity. Extremities:No deformity, no edema or tenderness, no joint swelling or clubbing. Neurological:Normal cognition and motor skills. Pulses:Carotid and radial pulses normal +2. Rest of the physical exam is non contributory Internal Med - H&P Results - Labs CBC & Chem 7: 08/22/18 00:47 08/22/18 00:47 Labs: Short CBC 08/21/18 08/22/18 Range/Units 18:59 00:47 WBC 6.4 D 5.0 (4.3-11.1) K/mcL Hgb 15.1 14.6 (12.9-16.9) g/dL Hct 44.0 42.7 (37.5-50.1) % Plt Count 204 187 (140-400) K/mcL Neutrophils # 3.9 2.1 (1.6-8.9) K/mcL BMP 08/21/18 08/22/18 18:59 00:47 Sodium 141 143 Potassium 3.7 4.0 Chloride 107 110 H Carbon Dioxide 25 24 BUN 17 17 Creatinine 1.02 0.96 Glucose 172 H 98 Calcium 9.6 9.4 Cardiac Enzymes 08/21/18 08/22/18 Range/Units 18:59 00:47 Troponin I < 0.03 < 0.03 (< 0.04) ng/mL Liver Function 08/22/18 Range/Units 00:47 Total Bilirubin 0.5 (0.3-1.0) mg/dL AST 21 (13-39) Units/L ALT 46 (7-52) Units/L Alkaline Phosphatase 36 (34-104) Units/L Albumin 4.1 (3.5-5.7) g/dL - Impressions ITS Impressions Chest X-Ray 08/21/18 19:00 IMPRESSION: No significant finding in the chest. D/ / Robbie aYp MD / Robbie Yap MD Interpreting Provider: Robbie Yap MD - Assessment and Plan (1) Abnormal stress test Current Visit: Yes Status: Acute Assessment and plan: Nuclear stress test on August 03 showing mild mid inferior ischemia on perfusion study. Left heart catheter was planned for the . Negative troponin EKG shows normal sinus rhythm without evidence of ST or T-wave abnormalities. -We will trend troponin -Telemetry -We will keep patient NPO for possible left heart catheter -Cardiology to follow (2) Coronary artery disease Current Visit: No Status: Acute Assessment and plan: History of coronary artery disease with severe single-vessel disease status post stent. Patient currently on aspirin, Plavix, LUISITO inhibitor, beta duran and statin. -Continue home medications Qualifiers: Coronary Disease-Associated Artery/Lesion type: [place] artery [place] vs. transplanted heart: [place] heart Associated angina: with other forms of angina Qualified Code(s): I25.118 - Atherosclerotic heart disease of [place] coronary artery with other forms of angina pectoris (3) Essential hypertension Current Visit: No Status: Chronic Assessment and plan: Blood pressure stable. Monitor (4) Hyperlipidemia Current Visit: No Status: Chronic Assessment and plan: Continue statin Qualifiers: Hyperlipidemia type: mixed hyperlipidemia Qualified Code(s): E78.2 - Mixed hyperlipidemia (5) DVT prophylaxis Current Visit: No Status: Acute Assessment and plan: Subcutaneous heparin - Time Spent With Patient Total time spent is greater than 50% in coordination of care (as documented) at patient's floor/unit and/or counseling patient:
[2018-08-22] MEDS ORDERED: Aspirin Enteric Coated 81 MG Tablet PO SCH (09:00)
--- NOTE | 2018-08-22 09:02 | Cardiology Consult Note ---
Date of Encounter: 08/22/18 Time of Encounter: 08:30 Assessment and Plan (1) Abnormal stress test Current Visit: Yes Status: Acute Per Cardiology: Exercise nuclear stress test 07/2018-- mild mid inferior ischemia small size and moderate intensity. Discussed with Dr. Cirstine Oro, plan for [facility] today if able. All questions answered. Patient and verbalized understanding and agreed with plan. (2) Coronary artery disease Current Visit: No Status: Chronic Per Cardiology: History of non-STEMI and drug-eluting stent to distal RCA 99% lesion July 2016. On aspirin, Plavix, statin, BB, ACEI. Qualifiers: Coronary Disease-Associated Artery/Lesion type: [place] artery [place] vs. transplanted heart: [place] heart Associated angina: with other forms of angina Qualified Code(s): I25.118 - Atherosclerotic heart disease of [place] coronary artery with other forms of angina pectoris Discussion w patient/family: The assessment and plan as outlined above was discussed with the patient and/or family members who expressed understanding and agreement. All questions were answered. Thank you for involving us in the care of your patient. Please call with any questions. History of Present Illness Consult date: 08/22/18 Consult reason: SOB Chief complaint: Fatigue History of present illness: Mr. Montes De Oca is a 58 year old male with a relevant past medical history of CAD, HTN, and HLD. Patient is outpatient of [facility] I saw last week for mildly abnormal stress test with worsening fatigue and dyspnea on exertion with pending outpatient catheterization next week. Cardiology consult for admission for short of breath and fatigue. Patient and seen today. Reports continues to experience worsening fatigue and dyspnea on exertion. He denies any chest pain or palpitations. Denies any dizziness, syncope, falls. Denies any active bleeding or blood loss. Has not utilized nitroglycerin pills. Desires to proceed with catheterization. Denies any change in condition since last appointment. Denies any infectious process. Past Med Surg Social Fam HX - Past Medical History Attestation: Yes The following information was validated with the patient. Source: patient, old records reviewed, obtained from family Medical history: hyperlipidemia, hypertension, myocardial infarction, osteoporosis, other Additional medical history: prediabetic Psychiatric history: no psych history - Past Surgical History Surgical History: other (trigger finger) Additional surgical history: trigger finger repair R 4th digit, urogenital surgery. Cardiac Stent x1 - Social History Smoking Status: Former smoker Smokeless Tobacco Status: No Alcohol use: none Drug use: none - Family History Father Family Member Ethnicity: Non- Living Status: Hx Family Cardiac Disorders: Yes (stents) Hx Family Respiratory Disorders: No Hx Family Cancer: Yes (lung w/ metastasis) Hx Family GI Disorders: (Hernia, cholecyctectomy) Hx Family Endocrine Disorder: No Hx Family Neuromuscular Disorders: No Hx Family Neurologic Disorders: Yes (Migraines, CVA) Hx Family HEENT Disorders: No Hx Family Autoimmune Disorders: No Mother Hx Family Respiratory Disorders: Yes (COPD) Hx Family Autoimmune Disorders: Yes (Alzheimer's) Daughter Living Status: Still Living Hx Family Cardiac Disorders: Yes (SVT w/ ablation) Medications and Allergies Tamsulosin [Flomax] 0.4 mg PO DAILY 08/22/16 [History] Aspirin [Lo-Dose Aspirin EC] 81 mg PO DAILY #30 tablet. 08/24/16 [Rx] Atorvastatin [Lipitor] 80 mg PO HS #30 tablet 08/24/16 [Rx] Clopidogrel [Plavix] 75 mg PO DAILY #30 tablet 08/24/16 [Rx] Lisinopril [Zestril] 5 mg PO DAILY #30 tablet 08/24/16 [Rx] Metoprolol [Lopressor] 25 mg PO BID #60 tablet 08/24/16 [Rx] Nitroglycerin [Nitrostat] 0.4 mg SL Q5MIN PRN 08/21/18 [History] Allergy/AdvReac Type Severity Reaction Status Date / Time clarithromycin [From Biaxin] Allergy Rash Verified 08/22/16 18:57 All Systems Review: The remainder of the systems were reviewed and are negative - Constitutional Constitutional: fatigue - Cardiovascular Cardiovascular: as per HPI, dyspnea on exertion Physical Examination Vital Signs, Last 4 Hours Temp Pulse Resp BP Pulse Ox 08/22/18 07:22 98.2 F 65 16 125/73 94 General: Conversant, No Apparent Distress HEENT: Atraumatic, Normocephaly, Mucus Membranes Moist Neck: No JVD, Normal carotid pulses Cardiac: Reg Rate and Rhythm, Normal S1 and S2, No Murmur Lungs: Normal Breath Sounds, No Wheeze, Rales, Rhonchi Neuro: Alert and responsive, No focal deficits noted Abdomen: Soft, Non-Tender Skin: No rashes noted on visualized skin Musculoskeletal: No Chest Wall Tenderness Extremities: No Clubbing, No Cyanosis, No Edema, Normal Pulses Results 08/22/18 00:47 08/22/18 00:47 Lab Results Laboratory Tests 08/21/18 08/21/18 08/21/18 18:59 18:59 18:59 Hgb Hct INR 1.0 Creatinine Est GFR (Non-Af Amer) AST ALT Troponin I < 0.03 B-Natriuretic Peptide 29 08/22/18 08/22/18 08/22/18 00:47 00:47 00:47 Hgb 14.6 Hct 42.7 INR Creatinine 0.96 Est GFR (Non-Af Amer) > 60 AST 21 ALT 46 Troponin I < 0.03 B-Natriuretic Peptide ITS Impressions Chest X-Ray 08/21/18 19:00 IMPRESSION: No significant finding in the chest. D/ / Robbie Yap MD / Robbie Yap MD Interpreting Provider: Robbie Yap MD Active Medications Aspirin (Aspirin Ec) 81 mg PO DAILY [facility] Stop: 02/21/19 09:01 Last Admin: 08/22/18 09:10 Dose: 81 mg Documented by: Atorvastatin Calcium (Lipitor) 80 mg PO HS [facility] Stop: 02/21/19 21:01 Clopidogrel Bisulfate (Plavix) 75 mg PO DAILY [facility] Stop: 02/21/19 09:01 Last Admin: 08/22/18 09:10 Dose: 75 mg Documented by: Heparin Sodium (Porcine) (Heparin) 5,000 unit SQ Q8HCO [facility] Stop: 02/20/19 23:46 Last Admin: 08/22/18 01:05 Dose: Not Given Documented by: Lisinopril (Zestril) 5 mg PO DAILY [facility]; Protocol Stop: 02/21/19 09:01 Last Admin: 08/22/18 09:10 Dose: 5 mg Documented by: Metoprolol Tartrate (Lopressor) 25 mg PO BID [facility] Stop: 02/21/19 09:01 Last Admin: 08/22/18 09:10 Dose: 25 mg Documented by: Naloxone HCl (Narcan) 0.4 mg IVP Q2MPRN PRN PRN Reason: SEE COMMENTS Stop: 02/20/19 23:44 Nitroglycerin (Nitroglycerin) 0.4 mg SL Q5MIN PRN PRN Reason: Chest Pain Stop: 02/20/19 23:48 Tamsulosin HCl (Flomax) 0.4 mg PO DAILY [facility]; Protocol Stop: 02/21/19 09:01 Last Admin: 08/22/18 09:10 Dose: 0.4 mg Documented by: - Imaging and Cardiology Stress Test: report reviewed Cardiac cath: pending - EKG Interpretation EKG results cardiology: personally reviewed, normal ECG, sinus rhythm Consult Discharge Plan - Plan Referrals: Izaiah Marrufo MD [Primary Care Provider] -
--- NOTE | 2018-08-22 10:29 | Event Note ---
Date of Encounter: 08/22/18 Time of Encounter: 10:29
[2018-08-22] MEDS ORDERED: 0.9 % Sodium Chloride 1,000 ML ONE ×2 (11:47→11:49)
[2018-08-22] MEDS ORDERED: Heparin 1,000 UNITS/500 mL 500 ML ONE (11:47)
[2018-08-22] MEDS ORDERED: Nitroglycerin 1,000 MCG/10 ML VIAL IV ONE (11:48)
[2018-08-22] MEDS ORDERED: *HR* Heparin 10,000 UNIT/10 ML VIAL ONE (11:48)
[2018-08-22] MEDS ORDERED: ISOVUE-370 200 ML INFUS..BTL ONE ×2 (11:48→12:50)
--- NOTE | 2018-08-22 11:58 | Pre-Sedation Evaluation ---
Pre-sedation evaluation - Pre-sedation checklist Date of procedure: 08/22/18 Procedure: [facility] Recent Vitals: Last Vital Signs Temp 98.0 F 08/22/18 11:26 Pulse 55 08/22/18 11:26 Resp 16 08/22/18 11:26 BP 129/78 08/22/18 11:26 Pulse Ox 96 08/22/18 11:26 H&P (including ROS) documented in medical record: Yes Previous reaction to sedatives/anesthetics: No Dietary Status: NPO after Midnight Airway Assessment: Patient can open mouth completely, TMJ function normal, Micrognathia (under-bite, receding chin) absent, Neck with adequate range of mot ion Dentition: No loose teeth or bridges, full dentition Possible difficult airway: No ASA Classification *see protocol: CLASS II-Mild systemic disease Plan of Care: Pt appropriate candidate for procedure/moderate/conscious sedation, Risks/benefits of procedure/sedation discussed w/ patient/family Cardiac Registry (Cardio Only) - Functional Capacity Functional Capacity: >=4 METS with symptoms - Clincal Frailty Scale Clinical Frailty Scale: Managing Well
[2018-08-22] MEDS ORDERED: *HR* Midazolam HCl 2 MG/2 ML VIAL ONE ×2 (12:29→12:54)
[2018-08-22] MEDS ORDERED: *HR* FentaNYL (PF) 100 MCG/2 ML VIAL ONE (12:29)
[2018-08-22] MEDS ORDERED: *HR* Bivalirudin 250 MG VIAL IVC ONE ×2 (12:52→13:07)
--- NOTE | 2018-08-22 13:41 | Event Note ---
Date of Encounter: 08/22/18 Time of Encounter: 13:40 - Cardiology Event Note Per Dr. Cristine Oro, nonobstructive CAD-- no intervention warranted. Cardiology signing off, reconsult as needed, follow up as planned. All questions answered.
--- NOTE | 2018-08-22 13:45 | Electrocardiograph Report ---
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
--- NOTE | 2018-08-22 13:45 | Invasive Diagnostic Lab Proc ---
Name: Izaiah Montes De Oca Date of Study: 08/22/2018 Date: 1960 Ht: 72.0in Medical Record#: [id number] Age: 58 Wt: 255.74lb Gender: Male BSA: 2.37 Order #: [id number] BMI: 34.68 Physicians Procedure Physician: Robyn Oro MD, [facility] Referring MD: Referring MD: Staff Name Position Time In Kenneth Ochoa RN Train Operator 12:28 PM Slava Gordon RT (R) Scrub 12:28 PM Chester Khalil RN Nurse 12:28 PM Kishan Gatica RN Monitor 12:29 PM Procedures Performed Procedure L HRT ARTERY/VENTRICLE ANGIO IV Doppler BLD Flow 1st Vessel IV Doppler BLD Flow Ad'l Vessel Pre-Procedure Checklist Informed consent is complete signed and on chart. H&P is on chart. ID band is on and ID verified with patient. Patient NPO for procedure The procedure was described for the patient and questions were answered. Blood Pressure: 125/73 ECG is on chart. Rhythm: NSR Plan of Care Patient will tolerate the procedure without complications. Adequate level of comfort will be maintained. Hemodynamics will remain stable Patient will recover from procedure without complications. Respiratory function will be maintained. Cardiac rhythm will remain stable. Patient temperature will be maintained. Patient and/or family have verbalized understanding of the procedure. Patient Education Chief Complaint/Reason for Test: Cardiac Cath Developmental Category: Adult (18-64 years) Developmentally Appropriate for Age: Yes Learning Barriers: None Education Needs: Procedure Education Method: Verbal Information Taught: Cardiac Cath Educational Evaluation: Able to repeat information Intravenous Access Time IV Size Location DC'd Fluid/Drip Rate Units RN 18g 1 1/4" Patent On Arrival Lt Antecubital 0.9NaCl Chester Khalil RN Allergies clarithromycin Vital Signs Time BP (mmHg) HR (bpm) O2 Sat. RR (bpm) LOC 12:31 PM / % 5 = Fully awake and oriented or at pre-proc level 12:31 PM / % 4 = Oriented but drowsy 12:46 PM / % 4 = Oriented but drowsy 01:01 PM / % 4 = Oriented but drowsy 12:30 PM 152 / 90 57 99 % 21 12:35 PM 135 / 84 65 98 % 17 12:40 PM 136 / 86 57 98 % 14 12:45 PM 126 / 87 68 96 % 10 12:50 PM 136 / 75 60 97 % 8 12:55 PM 131 / 87 61 98 % 8 01:00 PM 132 / 83 68 92 % 15 01:05 PM 129 / 76 67 91 % 20 01:10 PM 127 / 80 63 93 % 12 01:15 PM 130 / 77 65 94 % 15 Procedural Medications Time Medication Dose Units Method Given By 12:31 PM Oxygen 2 L/min nasal cannula Kenneth Ochoa RN 12:31 PM Versed 2 mg Intravenous Kenneth Ochoa RN 12:31 PM Fentanyl 50 mcg Intravenous Kenneth Ochoa RN 12:39 PM Benadryl 25 mg Intravenous Kenneth Ochoa RN 12:39 PM Lidocaine 2% 18 ml Subcutaneous Robyn Oro MD, FACC 12:54 PM Versed 1 mg Intravenous Kenneth Ochoa RN 12:54 PM Fentanyl 25 mcg Intravenous Kenneth Ochoa RN 12:55 PM Angiomax 0.75mg/kg bolus: 17 ml Intravenous Kenneth Ochoa RN 12:55 PM Angiomax 1.75mg/kg/hr: 40 ml/hr Intravenous Kenneth Ochoa RN 01:01 PM 90mg Adenosine in 90 ml 0.9 NS 974 ml/hr Intravenous Kenneth Ochoa RN 01:11 PM 90mg Adenosine in 90 ml 0.9 NS 974 ml/hr Intravenous Kenneth Ochoa RN ASA Classification: CLASS II- Mild systemic disease (i.e. well-controlled diabetes, hypertension, asthma, cigarette smoking) Feng Score Preprocedure Postprocedure Activity 2- Moves 4 extremities sustained head lift Activity 2- Moves 4 extremities sustained head lift Circulation 2- SBP +/= 20 points of pre-anesthetic level Circulation 2- SBP +/= 20 points of pre-anesthetic level Consciousness 2- Awake and alert oriented x 3 Consciousness 2- Awake and alert oriented x 3 O2 Saturation 2- Able to maintain O2 satruation of 92% on room air O2 Saturation 2- Able to maintain O2 satruation of 92% on room air Respiratory 2- Able to deep breathe and cough well Respiratory 2- Able to deep breathe and cough well Total Score 10 Total Score 10 Contrast Agent: Isovue Diagnostic Contrast: 83 ml Total Contrast: 83 ml Fluoro Dose: 40 mGy Procedure Log Time Note Enter By 12:24 PM 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 well-controlled diabetes, hypertension, asthma, cigarette smoking) cedwards 12:24 PM Iftikhar and li completed ced 12:24 PM Sign in performed according to hospital policy. Informed consent was obtained. ced 12:24 PM Procedure start : ced 12: PM Kenneth Ochoa RN Position: Train Operator Time in: cedwards 12: PM Slava Gordon (R) Position: Scrub Time in: : cedwards 12: PM Chester Khalil RN Position: Nurse Time in: ced 12: PM Kishan Gatica RN Position: Monitor Time in: cedwards 12: PM Vitals capture started with the following parameters, Patient=Adult, Interval=5 min, Initial Nlitbmfz=207 mmHg, Deflation Rate=5 mmHg, Cuff placed on Left Arm 12: PM Recorded ECG: HR=63 Condition=Condition 1 12:30 PM HR=57 bpm, WRNJ=596/90 mmhg, SpO2=99.0 %, Resp=21 B/min 12: PM Hair removed from procedure site in procedure lab using clippers. Bilateral groin prepped with Chloraprep by Slava Gordon (R), then patient was draped. Skin intact. ced 12:31 PM Time: 12:31 Patient comfortable and pain free: Yes 12: PM Time: 12:31LOC: 5 = Fully awake and oriented or at pre-proc level ced 12: PM Time: 12:31 Oxygen on at 2 L/min per nasal cannula by Kenneth Ochoa RN cedwards 12:31 PM Time: 12:31 Versed 2 mg Intravenous Given by Kenneth Ochoa RN cedwards 12:32 PM Time: 12:31 Fentanyl 50 mcg Intravenous Given by Kenneth Ochoa RN cedwards 12:35 PM HR=65 bpm, YSGS=388/84 mmhg, SpO2=98.0 %, Resp=17 B/min, EtCO2=35 mmHg, Comment=NSR 12: PM Clinical Presentation: Unstable angina cedwards 12:38 PM Time out was performed according to hospital policy. Conscious sedation and anesthesia was achieved (see medication log with in this report above) cedwards 12:39 PM Time: 12:39 Benadryl 25 mg Intravenous Given by Kenneth Ochoa RN cedwards 12:40 PM HR=57 bpm, DACJ=296/86 mmhg, SpO2=98.0 %, Resp=14 B/min, Comment=NSR 12:41 PM Time: 12:39 18 ml Lidocaine 2% to right groin Subcutaneous Given by Robyn Oro MD, [facility] cedwards 12:42 PM Access obtained by percutaneous puncture. 5Fr 10cm Terumo Chardon sheath placed in right Femoral artery. [id number] cedwards 12:42 PM 0.035 145cm Navilyst 3mmJ wire [id number] cedwards 12:43 PM 5Fr FL 4 catheter inserted over the wire [facility] cedwards 12:43 PM LCA angiography performed in multiple views. cedwards 12:43 PM Recorded Pressure: Ao, HR=59, Condition=Condition 1 (Aorta) Ao 124/93/108 12:44 PM Recorded Pressure: Ao, HR=64, Condition=Condition 1 (Aorta) Ao 126/92/108 12:45 PM Catheter removed cedwards 12:45 PM 5Fr FR 4 catheter inserted over the wire [facility] cedwards 12:45 PM RCA angiography performed in multiple views. cedwards 12:45 PM HR=68 bpm, IEVV=965/87 mmhg, SpO2=96.0 %, Resp=10 B/min, EtCO2=36 mmHg, Comment=NSR 12:46 PM Time: 12:31LOC: 4 = Oriented but drowsy cedwards 12:46 PM Time: 12:31 Patient comfortable and pain free: Yes cedwards 12:47 PM Catheter removed cedwards 12:47 PM 5Fr Pigtail catheter inserted over the wire [facility] cedwards 12:48 PM Catheter crossed the aortic valve and was selectively placed in the left ventricle. Pressures recorded on pullback for left heart catheterization. cedwards 12:48 PM Bolus angiogram of left Ventricle complete: 8 ml/sec for a total of 24 mls cedwards 12:49 PM Pressure channel 1 zero failed. 12:49 PM Pressure channel 1 zeroed. 12:50 PM Recorded Pressure: LV, HR=62, Condition=Condition 1 (Left Ventricle) LV 114/-8/7 12:50 PM Recorded Pressure: LV, Ao, HR=62, Condition=Condition 1 (Left Ventricle) LV 109/19/26, (Aorta) Ao 90/62/79 12:50 PM HR=60 bpm, SCRO=109/75 mmhg, SpO2=97 %, Resp=8 B/min 12:51 PM Catheter removed cedwards 12:52 PM Coronary Dominance: right cedwards 12:53 PM Lesion found in Mid RCA. Pre Stenosis: 50 Pre ANDRAE Flow: 3: Complete and Brisk Flow/Perfusion cedwards 12:54 PM Time: 12:54 Versed 1 mg Intravenous Given by Kenneth Ochoa RN cedwards 12:54 PM Time: 12:54 Fentanyl 25 mcg Intravenous Given by Kenneth Ochoa RN cedwards 12:55 PM Sheath exchanged for a 6 Fr 10 cm [employer] Chardon sheath [id number] cedwards 12:55 PM Time: 12:55 Angiomax 0.75mg/kg bolus: 17 ml Intravenous Given by Kenneth Ochoa RN Amaya pump cedwards 12:55 PM HR=61 bpm, LUSM=877/87 mmhg, SpO2=98.0 %, Resp=8 B/min 12:56 PM Time: 12:55 Angiomax 1.75mg/kg/hr: 40 ml/hr Intravenous Given by Kenneth Ochoa RN Amaya pump cedwards 01:00 PM 6Fr JR 4 Cordis guide catheter was used to cannulate the PCI vessel successfully. reused? No cedwards 01:00 PM .014 Prowater 180cm guide wire across target lesion- successful. reused? No cedwards 01:00 PM Asist FFR Catheter advanced to target lesion. cedwards 01:00 PM HR=68 bpm, HHGQ=935/83 mmhg, SpO2=92 %, Resp=15 B/min 01:01 PM Pressure channel 4 equalized to channel 1. 01:01 PM Time: 12:46 Patient comfortable and pain free: Yes cedwards 01:01 PM Time: 12:46LOC: 4 = Oriented but drowsy cedwards 01:02 PM Time: 13:01 90mg Adenosine in 90 ml 0.9 NS 974 ml/hr Intravenous Given by Kenneth Ochoa RN Amaya pump cedwards 01:03 PM FFR: Value=0.91, Condition=Condition 1, Device=VOLCANO PRIME WIRE 01:03 PM Recorded Pressure: Ao, PV1, FFR=0.91, HR=72, Condition=Condition 1 (Aorta) Ao 89/55/70, (Portal Vein) PV1 81/82/65 01:04 PM FFR Measurement: 00.91 cedwards 01:04 PM Flow Wire/Catheter removed intact cedwards 01:05 PM Guide catheter removed intact. cedwards 01:05 PM 6Fr XB LAD 3.5 Cordis guide catheter was used to cannulate the PCI vessel successfully. reused? No cedwards 01:05 PM HR=67 bpm, PRYP=465/76 mmhg, SpO2=91 %, Resp=20 B/min 01:06 PM Lesion found in 1st Diagonal. Pre Stenosis: 50 Pre ANDRAE Flow: 3: Complete and Brisk Flow/Perfusion cedwards 01:09 PM .014 Prowater 180cm guide wire across target lesion- successful. reused? Yes cedwards 01:10 PM Asist FFR Catheter advanced to target lesion. cedwards 01:10 PM HR=63 bpm, VIOI=653/80 mmhg, SpO2=93 %, Resp=12 B/min 01:11 PM Pressure channel 4 equalized to channel 1. 01:12 PM Time: 13:11 90mg Adenosine in 90 ml 0.9 NS 974 ml/hr Intravenous Given by Kenneth Ochoa RN Amaya pump cedwards 01:13 PM FFR: Value=0.83, Condition=Condition 1, Device=VOLCANO PRIME WIRE 01:13 PM Recorded Pressure: Ao, PV1, FFR=0.83, HR=63, Condition=Condition 1 (Aorta) Ao 88/58/73, (Portal Vein) PV1 86/81/63 01:14 PM Adenosine stopped, Angiomax stopped cedwards 01:14 PM FFR Measurement: 0.83 cedwards 01:15 PM Flow Wire/Catheter removed intact cedwards 01:15 PM HR=65 bpm, PJJT=639/77 mmhg, SpO2=94.0 %, Resp=15 B/min, EtCO2=25 mmHg, Comment=NSR 01:16 PM Time: 13:01LOC: 4 = Oriented but drowsy cedwards 01:16 PM Time: 13:01 Patient comfortable and pain free: Yes cedwards 01:17 PM Guide catheter removed intact. cedwards 01:17 PM Femoral Angio 4 mL of contrast cedwards 01:17 PM Procedure completed at 13:16 08/22/2018 cedwards 01:17 PM Did you address ANDRAE flow and Dominance? YesCoronary Dominance: right cedwards 01:19 PM Sign out completed: Radiation Dose 280.38 mGy, 40.5 Gy/cm2 Fluoro Time: 5 Isovue 370 - 200ml contrast 82.6 ml given by Robyn Oro MD, [facility]. Complications: None. 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 Sedation minutes 47. Cardiac Rehab Consult needed: No. Confirmed administered medications: Yes cedwards 01:19 PM Isovue 370 - 200ml,2 Bottle(s) used. cedwards 01:19 PM Arterial sheath pulled, Mynx closure device used and was Successful [id number] S/N. cedwards 01:19 PM Estimated Blood Loss: minimal cedwards 01:19 PM Post ECG NSR cedwards 01:19 PM Post Blood Pressure 130/77 cedwards 01:20 PM Information taught Cardiac Cath, IVUS/Flowire, and Mynx cedwards 01:20 PM Education needs Plan of Care, Procedure, and Disease Process cedwards 01:20 PM Learning barriers :None cedwards 01:20 PM Education Methods Verbal cedwards 01:20 PM Education evaluation Able to repeat information cedwards 01:20 PM Site status No bleeding/hematoma - Rt Groin as reported by Slava Gordon RT (R) at 13:20 cedwards 01:20 PM Opsite applied cedwards 01:20 PM Plavix, Effient or Brilinta given No cedwards 01:20 PM Family placed in consult room. cedwards 01:20 PM Complications: None cedwards 01:29 PM Report given to Belinda MCKEON Pt taken to Room #49. 13:29 cedwards 01:30 PM Patient out of room: 13:30 cedwards 01:30 PM Lesion found in Proximal RCA. Pre Stenosis: 30 Pre ANDRAE Flow: cedwards 01:31 PM Lesion found in Distal LMCA. Pre Stenosis: 25 Pre ANDRAE Flow: cedwards 01:31 PM Lesion found in Proximal LAD. Pre Stenosis: 30 Pre ANDRAE Flow: cedwards 01:31 PM Lesion found in Mid LAD. Pre Stenosis: 30 Pre ANDRAE Flow: cedwards 01:31 PM Lesion found in Proximal Circumflex. Pre Stenosis: 30 Pre ANDRAE Flow: cedwards 01:31 PM Lesion found in Mid Circumflex. Pre Stenosis: 40 Pre ANDRAE Flow: cedwards 01:32 PM Lesion found in Distal Circumflex. Pre Stenosis: 40 Pre ANDRAE Flow: cedwards Complications Complication None None Hemodynamics Pressures Site Systolic/A Wave Diastolic/V Wave Mean AO 124 93 108 AO 126 92 108 LV 114 -8 7 LV 109 19 26 AO 90 62 79 AO 89 55 70 PV1 81 82 65 AO 88 58 73 PV1 86 81 63 Post Procedure Information Blood Pressure: 130/77 mmHg Rhythm: NSR Post procedural instructions were given Closure Device Time Device Success/Fail 08/22/2018 1:30:00 PM MynxGrip Successful Site Checks Time Location Status Staff Sheath In? Note 01:20 PM Rt Groin No bleeding/hematoma Slava Gordon RT (R) Pulses Time Site Pre-Procedure Post-Procedure Note Bilateral DP & PT 2+ 2+ Bilateral radial 2+ 2+ Updated by Kishan Gatica RN on 08/22/2018 1:39:05 PM electronically signed on 08/22/2018 1:40:12 PM with status of Final
[2018-08-22 15:27] VITALS: BP 115/74
--- NOTE | 2018-08-22 17:33 | Discharge Summary ---
- NOTES TO OUTPATIENT PROVIDER Notes to Outpatient Provider: Patient had abnormal stress test LHC completed nonobstructive CAD will need follow-up with cardiology Date of Encounter: 08/22/18 Time of Encounter: 17:25 - Discharge Diagnosis (1) Hyperlipidemia Priority: Secondary Status: Chronic Qualifiers: Hyperlipidemia type: mixed hyperlipidemia Qualified Code(s): E78.2 - Mixed hyperlipidemia (2) Abnormal stress test Priority: Primary Status: Acute (3) Essential hypertension Priority: Secondary Status: Chronic (4) Coronary artery disease Priority: Secondary Status: Chronic Qualifiers: Coronary Disease-Associated Artery/Lesion type: habematolel artery [place] vs. transplanted heart: habematolel heart Associated angina: with other forms of angina Qualified Code(s): I25.118 - Atherosclerotic heart disease of habematolel coronary artery with other forms of angina pectoris Hospital course: Mr. Montes De Oca is a 58 year old male past medical history CAD hypertension hyperlipidemia. Presented to [facility] ED with ongoing fatigue and dyspnea on exertion. Symptoms have been occurring for the past 2 months becoming increasingly winded after climbing short flight of stairs. No chest pain. He was evaluated by PCP sent for a nuclear stress test performed August 03 which did show a mild mid inferior ischemia on perfusion study. He was planned to have a left heart catheter on the however the symptoms were persistent and presented to the ER with the above complaints. He was evaluated by cardiology and underwent LHC which showed nonobstructive CAD no intervention warranted. Catheter site to right groin with no hematoma or bleeding good pulse to right extremity. Patient ambulated without any difficulty chest pain or shortness of breath Patient is to follow-up with cardiology as outpatient. Currently he is hemodynamically stable and is ready for discharge - Time Spent with Patient Total time spent providing and/or coordinating discharge services: - Discharge Medications Prescriptions: Continued Tamsulosin [Flomax] 0.4 mg PO DAILY Atorvastatin [Lipitor] 80 mg PO HS #30 tablet Clopidogrel [Plavix] 75 mg PO DAILY #30 tablet Metoprolol [Lopressor] 25 mg PO BID #60 tablet Aspirin [Lo-Dose Aspirin EC] 81 mg PO DAILY #30 tablet. Lisinopril [Zestril] 5 mg PO DAILY #30 tablet Nitroglycerin [Nitrostat] 0.4 mg SL Q5MIN PRN PRN Reason: Chest Pain Home Medications: Tamsulosin [Flomax] 0.4 mg PO DAILY 08/22/16 [History] Aspirin [Lo-Dose Aspirin EC] 81 mg PO DAILY #30 tablet. 08/24/16 [Rx] Atorvastatin [Lipitor] 80 mg PO HS #30 tablet 08/24/16 [Rx] Clopidogrel [Plavix] 75 mg PO DAILY #30 tablet 08/24/16 [Rx] Lisinopril [Zestril] 5 mg PO DAILY #30 tablet 08/24/16 [Rx] Metoprolol [Lopressor] 25 mg PO BID #60 tablet 08/24/16 [Rx] Nitroglycerin [Nitrostat] 0.4 mg SL Q5MIN PRN 08/21/18 [History] Allergies/Adverse Reactions: Allergy/AdvReac Type Severity Reaction Status Date / Time clarithromycin [From Biaxin] Allergy Rash Verified 08/22/16 18:57 Date of admission: 08/21/18 21:49 Primary care physician: Izaiah Marrufo MD Consults: 08/21/18 23:56 Consult to Cardiology [CONS] Routine Comment: Consulting Provider: Cardiology Lorna Reason for Consult: Chest pain in the setting of recent positive stress test Call Completed: No Discharging clinician: Sylvia Leon Anticipated date of discharge: 08/22/18 - Constitutional Vitals: Temp Pulse Resp BP Pulse Ox 97.8 F 66 18 115/74 96 08/22/18 15:26 08/22/18 15:26 08/22/18 15:26 08/22/18 15:26 08/22/18 11:26 Exam: Skin: Free of rash and discoloration. Eyes: Sclera is white. There is no discharge from eyes. ENMT: Oral/pharyngeal mucosa is normal in appearance. There is no discharge from nose or ears. Respiratory: Normal breath sounds with no crackles and wheezes bilaterally. CV: Heart is regular with no gallop or murmur. GI: Abdomen is flat and soft with no palpable mass or visceromegaly. : There is no tenderness in patient's flanks bilaterally. Neuro exam: He has good strength in upper and lower extremities. He has normal eye movements. Psychiatric: He has normal affect. His thought process is appropriate to the situation. - Patient Status Disposition: Home, Self-Care Condition: Undetermined Functional capacity at discharge: independent ambulation Overall status at discharge: patient is back to baseline - Discharge Instructions Follow Up With: Izaiah Marrufo MD [Primary Care Provider] - - Diet and Activity Activity: other Diet: low fat, low cholesterol, low salt diet
== END 2018-08-22 18:15 | disposition home or self-care (01) ==
LOC: 3BNU 18:48 → EMEROOARM 18:48 → 3BNU 22:26
PROVIDERS: ADMIT Internal Medicine; ATTEND Internal Medicine